=== PATIENT | male | born 1945 | race Caucasian/White ===

== ENCOUNTER 2019-09-20 16:17 | Emergency (ER) | payer MEDICARE, SELFPAY ==
--- NOTE | ~2019-09-20 | XR_ITS ---
XR chest 2V DATE: 09/20/2019 16:55 INDICATION: Cough for 3 days. Diminished breath sounds on the right. TECHNIQUE: PA and lateral views COMPARISON: None FINDINGS: Bilateral hyperinflation. No pulmonary infiltrate or consolidation, pleural effusion or pul monary vascular congestion or pneumothorax. Mild bilateral apical capping. No hilar or mediastinal enlargement. Degenerative spurring of the thoracic spine. Osteopenia. IMPRESSION: Bilateral hyperinflation; no active cardiopulmonary disease Reviewed, dictated and finalized at location B. 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
--- NOTE | 2019-09-20 16:20 | ED.URI ---
HPI - URI/Sore Throat General Chief Complaint: Upper Respiratory Infection Stated Complaint: body aches/cough/rasmussen/chills Time Seen by Provider: 09/20/19 16:43 Source: patient and RN notes reviewed Mode of arrival: ambulatory Limitations: no limitations History of Present Illness HPI Narrative: 73-year-old male with history of COPD presents with 2-day history of cough, chest congestion, rhinorrhea, chills, body aches. Reports he did not take his temperature. MD elicited complaint: cough Related Data Home Medications Medication Instructions Recorded Confirmed albuterol sulfate 90 mcg/actuation 2 puff INHALATION Q4-6H PRN gm 07/05/19 aerosol inhaler amlodipine 10 mg tablet 10 mg PO DAILY 07/05/19 aspirin 81 mg tablet,delayed 81 mg PO DAILY 07/05/19 release atorvastatin 40 mg tablet 40 mg PO DAILY 07/05/19 cholecalciferol (vitamin D3) 25 1,000 unit PO DAILY 07/05/19 mcg (1,000 unit) capsule clopidogrel 75 mg tablet 75 mg PO DAILY 07/05/19 fluticasone 500 mcg-salmeterol 50 1 inhalation INHALATION Q12H 07/05/19 mcg/dose blistr powdr for inhalation ipratropium 0.5 mg-albuterol 3 mg 3 ml INHALATION QID PRN 07/05/19 (2.5 mg base)/3 mL nebulization soln magnesium oxide 400 mg PO DAILY 07/05/19 metoprolol succinate 100 mg 100 mg PO DAILY 07/05/19 tablet,extended release 24 hr pantoprazole 40 mg granules 40 mg PO DAILY 09/07/19 delayed-release for susp in packet Allergies Allergy/AdvReac Type Severity Reaction Status Date / Time No Known Allergies Allergy Verified 01/04/19 07:52 Review of Systems Review of Systems: Narrative: CONSTITUTIONAL: Reports malaise, chills, sweats. Denies fever. EYES: Denies visual changes, redness, or discharge. ENT: Reports rhinorrhea, congestion. Denies sinus pain, otalgia and sore throat. CARDIOVASCULAR: Denies chest pain, palpitations, or edema. RESPIRATORY: Reports cough, chest congestion, wheezing. Denies dyspnea. GASTROINTESTINAL: Denies abdominal pain, nausea, vomiting, diarrhea SKIN: Denies rash or itching. MUSCULOSKELETAL: Reports myalgia. NEUROLOGIC: Denies headache. All systems reviewed & are unremarkable except as noted in HPI and below PMFSH Social History Social History Years smoked: 50 Smoking status: Current every day smoker Tobacco type: cigarettes Second hand tobacco smoke exposure: No Smoking end date: 08/17/14 Alcohol intake: never Drinks per week: 1 Substance use: never Substance use type: does not use Gender identity (if verbalized by the patient): Male Comments At time of signature, agree with nursing past medical, surgical, social and family history. There is no relevant family history pertinent to the presenting complaint Exam Narrative: Exam Narrative: GENERAL: Well-appearing, well-nourished, and in no acute distress. HEAD: Normocephalic, atraumatic. EYES: PERRLA, conjunctivae clear, and EOMI. ENT: Nares clear, turbinates erythematous, clear discharge. Mucous membranes moist. TM pearly acevedo with dull light reflex bilaterally; no tragal tenderness. Oropharynx not erythematous without lesions. Tonsils not enlarged and without exudate, no drooling, no hoarseness, no trismus. NECK: Supple. No lymphadenopathy CHEST: Clear to auscultation, breath sounds diminished in the right lower lobe. No wheezing, rhonchi, rales, or stridor. No respiratory distress, speaks in full sentences. HEART: Regular rate and rhythm. No murmur heard. Normal peripheral pulses. SKIN: Warm, dry, no rash. NEURO: Alert and oriented x3. PSYCH: Normal mood and affect Course Course Emergency Course: Patient is aware of diagnosis, understands and agrees to treatment plan. Anticipatory guidance given. Patient agrees to follow-up as directed and is aware of reasons to seek care at the emergency department. Portions of this record may have been created with voice recognition software Vital Signs Vi
[2019-09-20 16:22] VITALS: BP 130/58; PULSE 88; RESP 32; TEMP 37.1; O2SAT 95
== END 2019-09-20 17:17 | disposition home or self-care (01) ==
PROVIDERS: Emergency Provider Nurse Practitioner; PCP Family Medicine
DX: B34.9 Viral infection, unspecified (principal); J44.9 Chronic obstructive pulmonary disease, unspecified; F17.210 Nicotine dependence, cigarettes, uncomplicated; E78.00 Pure hypercholesterolemia, unspecified; I10 Essential (primary) hypertension; E03.9 Hypothyroidism, unspecified
CPT/HCPCS: 71046; 87804; 99213; G0463

== ENCOUNTER → 2019-10-12 10:28 | Outpatient (REF) | payer MEDICARE, SELFPAY | LOC: ANHLAB 10:28 | PROVIDERS: PCP Family Medicine; Visit Provider Nurse Practitioner Family | DX: C44.01 Basal cell carcinoma of skin of lip (principal) | CPT/HCPCS: 88305; 88331 ==

== ENCOUNTER 2020-03-20 10:39 | Outpatient (CLI) | payer MEDICARE, SELFPAY ==
--- NOTE | ~2020-03-20 | CT_ITS ---
EXAMINATION: CT lung screening DATE: 03/20/2020 11:14 INDICATION: Personal history of tobacco dependence, current smoker with 50 pack year history TECHNIQUE: Computed tomography (CT) of the chest was performed without intravenous contrast. The dose -length product (DLP) was 135.27 mGy-cm. 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 COMPARISON: 12/31/2018 FINDINGS: There is mild emphysema. A previously described 5 mm nodule in the left upper lobe now flori ures 1 mm. A 3 mm nodule previously described in the right lower lobe is no longer identified. There is a stable 4 mm groundglass nodule of the right lower lobe. No new pulmonary nodules are identified. The lungs are free of focal airspace opacities. There is no pleural effusion or pneumothorax. No pat hologically enlarged thoracic lymph nodes are identified. The heart size is normal. Coronary artery a therosclerosis is noted. There is mild thoracic spondylosis. IMPRESSION: 1. Lung-RADS category 2: Benign appearance or behavior. Continue annual screening with noncontrast lo w-dose chest CT in 12 months. Reviewed, dictated and finalized at location A. IMPRESSION: 1. Lung-RADS category 2: Benign appearance or behavior. Continue annual screeni ng with noncontrast low-dose chest CT in 12 months.
== END 2020-03-20 10:40 | disposition home or self-care (01) ==
PROVIDERS: PCP Family Medicine; Visit Provider Family Medicine
DX: Z12.2 Encounter for screening for malignant neoplasm of respiratory organs (principal); Z87.891 Personal history of nicotine dependence
CPT/HCPCS: G0297

== ENCOUNTER 2020-07-13 08:31 | Emergency (ER) | payer MEDICARE, SELFPAY ==
--- NOTE | ~2020-07-13 | XR_ITS ---
XR chest 2V DATE: 07/13/2020 09:10 INDICATION: Cough. COPD. Stroke symptoms. TECHNIQUE: PA and lateral views COMPARISON: 03/20/2020 CT lung screening FINDINGS: There is bilateral hyperinflation consistent with COPD. No pulmonary infiltrate or consolid ation, pleural effusion or pulmonary vascular congestion or pneumothorax is detected. Normal heart size. Aortic calcification. No hilar or mediastinal enlargement. There is widening of the right acromion clavicular joint diffuse osteopenia. Mild degenerative spurri ng of the thoracic spine. IMPRESSION: COPD Aortic atherosclerosis Reviewed, dictated and finalized at location A. DATA ADMIN IMPRESSION: COPD Aortic atherosclerosis
--- NOTE | ~2020-07-13 | CT_ITS ---
EXAMINATION: CT brain wo con DATE: 07/13/2020 09:06 INDICATION: Left lower extremity numbness TECHNIQUE: Computed tomography (CT) of the head was performed without intravenous contrast. The mA wa s adjusted according to patient size. Iterative reconstruction technique was employed. Exam dose: 60 5.33 mGy-cm total exam DLP. COMPARISON: 03/26/2015 CT brain FINDINGS: Bilateral vertebral artery, basilar artery and bilateral carotid siphon internal carotid ar cris calcifications. There is patchy bilateral diminished attenuation of the cerebral white matter, likely due to chronic small vessel ischemic changes. No intracranial mass lesion or hemorrhage, midline shift or mass effect. No subdural or epidural isabell [place]. There is moderate cerebral and mild cerebellar volume loss. Included paranasal sinuses and mastoid air cells are normally developed and aerated. No fracture or bone destruction of the cranial vault. IMPRESSION: Cerebral atherosclerosis and chronic small vessel ischemic changes of the cerebral white matter No acute intracranial finding or significant change since 03/17/2015 Reviewed, dictated and finalized at Location A. Reviewed, dictated and finalized at location A. 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
--- NOTE | 2020-07-13 08:55 | ECG_ITS ---
Measurements Intervals [place] Rate: 64 P: 60 [place]: 138 QRS: 66 QRSD: 79 T: 74 QT: 382 QTc: 396 Interpretive Statements SINUS RHYTHM WITH SINUS ARRHYTHMIA BASELINE ARTIFACT- AVL, AVF, V3 NORMAL ECG Electronically Signed On 07-13-2020 14:25:48 [employer]TING by Tristen Lance D.O.
[2020-07-13 08:56] VITALS: BP 138/66; PULSE 78; RESP 20; TEMP 36.8; O2SAT 98
[2020-07-13 09:44] VITALS: BP 132/56; PULSE 67; RESP 20; O2SAT 96
[2020-07-13 09:58] LABS: Basophils Percent Auto 0.2 % (0.2-1.2); Eosinophils Absolute Auto 0.1 K/mm3 (0-0.3); Eosinophils Percent Auto 1.8 % (0-4.4); Hematocrit 42.7 % (42.0-52.0); Hemoglobin 14.1 g/dL (14.0-18.0); Immature Granulocyte Absolute 0.02 K/mm3 (0.00-0.031); Immature Granulocyte Percent A 0.4 % (0-0.5); Lymphocytes Absolute Auto 1.14 K/mm3 (0.9-3.2); Lymphocytes Percent Auto 20.5 % (18.3-44.2); Mean Corpuscular Hemoglobin 31.3 pg (26-34); Mean Corpuscular Volume 94.7 fl (80-100); Mean Platelet Volume 9.1 fl (7.4-10.4); Monocytes Absolute Auto 0.7 K/mm3 (0.1-0.6); Monocytes Percent Auto 12.2 % (2.6-8.5); Neutrophils Absolute Auto 3.6 K/mm3 (1.3-6.7); Neutrophils Percent Auto 64.9 % (45.5-73.1); Platelet Count Result 194 k/mm3 (150-375); Red Blood Count 4.51 M/mm3 (4.6-6.20); Red Cell Distribution Width 13.2 % (11.5-14.5); White Blood Count 5.6 K/mm3 (4.5-10.0)
[2020-07-13 10:08] LABS: INR 0.9; Prothrombin Time 13.1 Seconds (11.1-14.7)
[2020-07-13 10:09] LABS: Partial Thromboplastin Time 28.5 SECONDS (22.3-36.8)
[2020-07-13 10:10] LABS: Anion Gap 8 mmol/L (8-16); Blood Urea Nitrogen 29 mg/dL (9-20); Calcium 10.9 mg/dL (8.4-10.2); Carbon Dioxide 28 mmol/L (22-30); Chloride 104 mmol/L (98-107); Estimated Glomerular Filt Rate 42; Glucose 93 mg/dL (75-110); Potassium 4.6 mmol/L (3.4-5.0); Sodium 140 mmol/L (137-145)
--- NOTE | 2020-07-13 10:48 | ED.GENADULT ---
HPI - General Adult General Chief complaint: Extremity Injury, Lower Stated complaint: Left leg pain and numbness Time Seen by Provider: 07/13/20 08:43 History of Present Illness HPI narrative: Patient is a 74-year-old male who presents ER with left lower extremity numbness and fall occurring this morning. Reports he woke up from sleep and he was numb below his knee. Reports this caused him to have difficulty walking and fell. He had no numbness or tingling or weakness to any other part of his body. He does not think he was having foot drop. Patient reports he has been having some left hip pain chronically and thought that that had made his leg go to sleep. Reports he has history of carotid artery stenosis bilaterally and has had TIAs. He does take Plavix and aspirin. No chest pain or chest pressure. No dysarthria or facial droop. Symptoms have resolved. Related Data Home Medications Medication Instructions Recorded Confirmed albuterol sulfate 90 mcg/actuation 2 puff INHALATION Q4-6H PRN gm 07/05/19 aerosol inhaler aspirin 81 mg tablet,delayed 81 mg PO DAILY 07/05/19 release cholecalciferol (vitamin D3) 25 1,000 unit PO DAILY 07/05/19 mcg (1,000 unit) capsule fluticasone 500 mcg-salmeterol 50 1 inhalation INHALATION Q12H 07/05/19 mcg/dose blistr powdr for inhalation ipratropium 0.5 mg-albuterol 3 mg 3 ml INHALATION QID PRN 07/05/19 (2.5 mg base)/3 mL nebulization soln magnesium oxide 400 mg PO DAILY 07/05/19 Allergies Allergy/AdvReac Type Severity Reaction Status Date / Time No Known Allergies Allergy Verified 02/22/20 10:12 Review of Systems Review of Systems: All systems reviewed & are unremarkable except as noted in HPI and below Constitutional: Constitutional: Denies chills, Denies fever(s) and Denies weakness ENT: Denies nasal congestion and Denies sore throat Cardiovascular: Cardiovascular: Denies chest pain, Denies rapid heart rate and Denies radiating jaw, neck or arm pain Respiratory: Respiratory: Denies cough, Denies dyspnea and Denies wheezing Neurologic: Denies syncope, Denies focal weakness and Reports numbness PMFSH Past Medical History Medical History (Updated 07/13/20 @ 11:49 by Agusto Rendon MD) Acquired hypothyroidism Benign prostatic hyperplasia with lower urinary tract symptoms Carotid artery disease Cataracts, bilateral COPD (chronic obstructive pulmonary disease) Essential (primary) hypertension GERD (gastroesophageal reflux disease) History of prostate cancer History of TIAs HLD (hyperlipidemia) Tennis elbow Surgical History Surgical History H/O laminectomy Status post lumbar laminectomy Status post recent transurethral resection of prostate Status post rotator cuff repair Family History Family History Mother Hypertension Cerebrovascular accident Carcinoma of colon Family history of malignant neoplasm of breast in first degree relative Sibling Family history of pancreatic cancer Father Family history of coronary artery disease Other Family history of malignant neoplasm Social History Social History Years smoked: 50 Smoking status: Current every day smoker Tobacco type: cigarettes Second hand tobacco smoke exposure: No Smoking end date: 08/17/14 Alcohol intake: never Substance use: never Substance use type: does not use Gender identity (if verbalized by the patient): Male Exam Narrative: Exam Narrative: GENERAL: Well-appearing, well-nourished, and in no acute distress. HEAD: Normocephalic, atraumatic. EYES: PERRL and EOMI. ENT: Mucous membranes moist. CHEST: Clear to auscultation. No respiratory distress. HEART: Regular rate and rhythm. Normal peripheral pulses. ABDOMEN: Soft, nontender, nondistended. EXTREMITIES: Normal range of motion. No edema.
[2020-07-13 10:51] VITALS: BP 114/56; PULSE 69; RESP 20; O2SAT 95
[2020-07-13 11:16] VITALS: BP 67/54; PULSE 66; RESP 22
[2020-07-13 11:41] VITALS: BP 135/62; PULSE 73; RESP 20; O2SAT 95
[2020-07-13 11:55] VITALS: BP 135/62; PULSE 68; RESP 20; O2SAT 98
== END 2020-07-13 12:06 | disposition home or self-care (01) ==
PROVIDERS: Emergency Provider Emergency Medicine; PCP Family Medicine
DX: G45.9 Transient cerebral ischemic attack, unspecified (principal); M25.552 Pain in left hip; I70.0 Atherosclerosis of aorta; E03.9 Hypothyroidism, unspecified; N40.1 Benign prostatic hyperplasia with lower urinary tract symptoms; I25.10 Atherosclerotic heart disease of native coronary artery without angina pectoris; J44.9 Chronic obstructive pulmonary disease, unspecified; I10 Essential (primary) hypertension; K21.9 Gastro-esophageal reflux disease without esophagitis; Z85.46 Personal history of malignant neoplasm of prostate; E78.5 Hyperlipidemia, unspecified; Z79.82 Long term (current) use of aspirin; Z79.02 Long term (current) use of antithrombotics/antiplatelets; Z90.79 Acquired absence of other genital organ(s)
CPT/HCPCS: 36415; 70450; 71046; 80048; 85025; 85610; 85730; 93005; 99284

== ENCOUNTER 2020-07-23 15:03 | Outpatient (CLI) | payer MEDICARE, SELFPAY ==
--- NOTE | ~2020-07-23 | XR_ITS ---
XR lumbar spine 2-3V DATE: 07/23/2020 15:30 INDICATION: Shooting pain from back to left leg for one month TECHNIQUE: AP, lateral, coned lateral lumbosacral views COMPARISON: None FINDINGS: Diffuse osteopenia. There is minimal dextroscoliosis. Normal alignment of the lumbar spine. No fracture or bone destruction is evident. The included lower thoracic and lumbar pedicles are intact. There is mild degenerative disc disease at L1-2 through L4-5. There is moderately severe degenerative disc disease at L5-S1. The sacroiliac joints are intact. Extensive calcification of the abdominal aorta and iliac arteries. IMPRESSION: Osteopenia Multilevel degenerative disc disease, prominent at L5-S1 Reviewed, dictated and finalized at location A. CUTTER
--- NOTE | ~2020-07-23 | XR_ITS ---
XR hip LT 2V w AP pelvis DATE: 07/23/2020 15:30 INDICATION: Left hip pain for one month TECHNIQUE: AP pelvis. AP, lateral, crosstable lateral views of left hip COMPARISON: 01/18/2018 left hip FINDINGS: Degenerative disc disease at L3-4, L4-5 and particularly L5-S1. No pelvic fracture or bone destruction. The pubic symphysis and sacroiliac joints are intact. There a re prominent bilateral iliac and femoral arterial calcifications. There is subtle mild left hip chondrocalcinosis. No fracture, dislocation, avascular necrosis or bone destruction of the left hip is detected. Left hip joint space appears relatively preserved. IMPRESSION: Subtle mild left hip chondrocalcinosis. Degenerative disc disease of the lumbar and lumbosacral spine Reviewed, dictated and finalized at location A. APPLIANCE TECH
== END 2020-07-23 15:04 | disposition home or self-care (01) ==
PROVIDERS: PCP Family Medicine; Visit Provider Physician Assistant
DX: M11.252 Other chondrocalcinosis, left hip (principal); M47.817 Spondylosis without myelopathy or radiculopathy, lumbosacral region; I77.811 Abdominal aortic ectasia; I70.0 Atherosclerosis of aorta; I70.8 Atherosclerosis of other arteries
CPT/HCPCS: 72100; 73502

== ENCOUNTER → 2020-08-24 11:48 | Outpatient (CLI) | payer MEDICARE, SELFPAY ==
--- NOTE | ~2020-08-24 | MR_ITS ---
EXAMINATION: MR lumbar spine wo con DATE: 08/24/2020 12:33 INDICATION: Lumbar radiculopathy. TECHNIQUE: Magnetic resonance imaging (MRI) of the lumbar spine was performed without intravenous con trast. Sequences included sagittal T2-weighted FSE, sagittal T2-weighted FS FSE, sagittal T1-weighted FSE, and axial T2-weighted FSE. COMPARISON: Lumbar spine radiograph 07/23/2020 FINDINGS: There is 8 degrees dextrocurvature of lumbar spine. There is 4 mm retrolisthesis of L5 on S 1. There is severely decreased disc height at L5-S1 with endplate remodeling. The distal spinal cord signal intensity is normal. The conus medullaris is at L1. The following disc levels are specifically discussed: L1-L2: The disc does not extend beyond the endplate margin. There is mild bilateral facet joint osteo arthritis. There is no neural foraminal stenosis. There is no central canal stenosis. L2-L3: The disc is mildly bulging. There is severe bilateral facet joint osteoarthritis. There is mil d bilateral neural foraminal stenosis. There is no central canal stenosis. L3-L4: The disc is mildly bulging. There is moderate right and severe left facet joint osteoarthritis . There is mild bilateral neural foraminal stenosis. There is no central canal stenosis. L4-L5: The disc is bulging. There is mild bilateral facet joint osteoarthritis. There is mild right a nd moderate left neural foraminal stenosis. There is mild central canal stenosis. L5-S1: The disc is bulging and has an annular fissure. The disc abuts the bilateral S1 nerve roots. T here is mild bilateral facet joint osteoarthritis. There is moderate bilateral neural foraminal steno sis. There is mild central canal stenosis. IMPRESSION: 1. Severe lower lumbar spondylosis. Reviewed, dictated and finalized at location A. PLANT OPERATOR
== END ==
PROVIDERS: PCP Family Medicine; Visit Provider Family Medicine
DX: M47.27 Other spondylosis with radiculopathy, lumbosacral region (principal); M48.07 Spinal stenosis, lumbosacral region; M25.552 Pain in left hip; M25.551 Pain in right hip
CPT/HCPCS: 72148

== ENCOUNTER 2020-10-06 11:40 | Outpatient (CLI) | payer MEDICARE, SELFPAY ==
--- NOTE | ~2020-10-06 | XR_ITS ---
EXAMINATION: XR abdomen/kub 1V EXAM DATE: 10/06/2020 11:57 INDICATION: Cancer of bladder neck. TECHNIQUE: Frontal projection(s) of the abdomen for interpretation. Comparison is made to prior exami nation from 06/14/2006. FINDINGS: There is moderate amount of colonic stool and gas. No small bowel dilation, nonobstructiv e bowel gas pattern. Calcifications in the pelvis are believed to be phleboliths. There is no orga nomegaly suspected. There are bony degenerative changes. Lung bases are unremarkable. IMPRESSION: Unremarkable abdomen x-ray exam. Reviewed, dictated and finalized at location A. ING CARRIER
== END 2020-10-06 11:41 | disposition home or self-care (01) ==
LOC: ANHIMG 11:44
PROVIDERS: PCP Family Medicine; Visit Provider Urology
DX: C67.5 Malignant neoplasm of bladder neck (principal)
CPT/HCPCS: 74018

== ENCOUNTER 2020-12-05 11:22 | Outpatient (CLI) | payer MEDICARE, SELFPAY ==
[2020-12-05 12:05] LABS: Basophils Absolute Auto 0.1 K/mm3 (0.0-0.1); Basophils Percent Auto 0.7 % (0.2-1.2); Eosinophils Absolute Auto 0.4 K/mm3 (0-0.3); Eosinophils Percent Auto 4.3 % (0-4.4); Hematocrit 40.9 % (42.0-52.0); Hemoglobin 13.1 g/dL (14.0-18.0); Immature Granulocyte Absolute 0.03 K/mm3 (0.00-0.031); Immature Granulocyte Percent A 0.3 % (0-0.5); Lymphocytes Absolute Auto 2.72 K/mm3 (0.9-3.2); Lymphocytes Percent Auto 30.1 % (18.3-44.2); Mean Corpuscular Hemoglobin 30.9 pg (26-34); Mean Corpuscular Volume 96.5 fl (80-100); Mean Platelet Volume 9.1 fl (7.4-10.4); Neutrophils Absolute Auto 4.9 K/mm3 (1.3-6.7); Neutrophils Percent Auto 53.6 % (45.5-73.1); Platelet Count Result 267 k/mm3 (150-375); Red Blood Count 4.24 M/mm3 (4.6-6.20); White Blood Count 9.1 K/mm3 (4.5-10.0)
[2020-12-05 12:15] LABS: Anion Gap 5 mmol/L (8-16); Blood Urea Nitrogen 23 mg/dL (9-20); Calcium 11.1 mg/dL (8.4-10.2); Carbon Dioxide 29 mmol/L (22-30); Chloride 109 mmol/L (98-107); Estimated Glomerular Filt Rate 59; Glucose 100 mg/dL (75-110); INR 0.9; Potassium 4.4 mmol/L (3.4-5.0); Prothrombin Time 12.8 Seconds (11.1-14.7); Sodium 143 mmol/L (137-145)
[2020-12-05 12:16] LABS: Partial Thromboplastin Time 27.4 SECONDS (22.3-36.8)
== END 2020-12-05 11:23 | disposition home or self-care (01) ==
LOC: ANHSURGERY 11:24
PROVIDERS: PCP Family Medicine; Visit Provider Urology
DX: C67.9 Malignant neoplasm of bladder, unspecified (principal)
CPT/HCPCS: 36415; 80048; 85025; 85610; 85730

== ENCOUNTER → 2020-12-07 00:46 | Outpatient (CLI) | payer MEDICARE, SELFPAY ==
[2020-12-07 21:02] LABS: SARS-CoV-2 RNA PCR Negative
== END ==
PROVIDERS: PCP Family Medicine; Visit Provider Urology
DX: Z01.812 Encounter for preprocedural laboratory examination (principal); Z20.822 Contact with and (suspected) exposure to COVID-19
CPT/HCPCS: C9803; U0003; U0005

== ENCOUNTER 2020-12-11 01:43 | Day surgery (SDC) | payer MEDICARE, SELFPAY ==
[2020-11-30 09:23] VITALS: BMI 23.6
[2020-12-11] VITALS (9 sets, daily range): BP systolic 129–173; BP diastolic 56–87; PULSE 54–88; RESP 14–20; TEMP 36.2–36.9; O2SAT 95–99; BMI 23.1
[2020-12-11] MEDS: LACTATED RINGERS 1,000 ML 30 ML IV CONT ×3 (06:44→11:18)
--- NOTE | 2020-12-11 07:04 | WPDANESEPPF ---
Anes - Initial Pre Proc Eval Procedure: Operation Date: 12/11/20 07:30 Proposed Procedures p Trans Urethral Resection Bladder Tumor - Charles Lincoln MD Date/Time: 12/11/20 07:04 Surgeon: Charles Lincoln MD Pre Op Diagnosis: bladder CA Patient Data Age: 75 Gender: M Height: 1.8 m Weight: 75.1 kg Last Vital Signs Temp 36.2 C L 12/11/20 06:29 Pulse 63 12/11/20 06:29 Resp 18 12/11/20 06:29 BP 152/57 H 12/11/20 06:29 Pulse Ox 98 12/11/20 06:29 Allergies Allergy/AdvReac Type Severity Reaction Status Date / Time No Known Allergies Allergy Verified 12/11/20 06:13 Home Medications Medication Instructions Recorded Confirmed Type albuterol sulfate 90 mcg/actuation 2 puff INHALATION Q4-6H PRN gm 07/05/19 12/11/20 History aerosol inhaler aspirin 81 mg tablet,delayed 81 mg PO QPM 07/05/19 12/11/20 History release cholecalciferol (vitamin D3) 25 1,000 unit PO DAILY 07/05/19 12/11/20 History mcg (1,000 unit) capsule ipratropium 0.5 mg-albuterol 3 mg 3 ml INHALATION QID PRN 07/05/19 12/11/20 History (2.5 mg base)/3 mL nebulization soln magnesium oxide 400 mg PO DAILY 07/05/19 12/11/20 History clopidogrel 75 mg tablet 75 mg PO DAILY #90 tablet 03/08/20 12/11/20 Rx lorazepam 0.5 mg tablet 0.5 - 1 mg PO .COMPLEX PRN #4 08/08/20 12/11/20 Rx tablet pantoprazole 20 mg tablet,delayed 20 mg PO QAM #90 tablet 09/24/20 12/11/20 Rx release amlodipine 10 mg PO QAM 11/30/20 12/11/20 History atorvastatin 80 mg PO QAM 11/30/20 12/11/20 History gabapentin 300 mg PO TID 11/30/20 12/11/20 History levothyroxine 112 mcg PO QPM 11/30/20 12/11/20 History lisinopril 10 mg PO QPM 11/30/20 12/11/20 History metoprolol succinate 100 mg PO QPM 11/30/20 12/11/20 History fluticasone fur. 100 mcg-umeclid 1 inh INHALATION Q24H #90 ea 12/04/20 12/04/20 Rx 62.5 mcg-vilant 25 mcg inhalat.powder Patient hx anesthesia problems: none Family hx anesthesia problems: none PMFSH Past Medical History Medical History (Updated 09/03/20 @ 13:15 by Gavin Lynch MD) Acquired hypothyroidism Benign prostatic hyperplasia with lower urinary tract symptoms Carotid artery disease Cataracts, bilateral COPD (chronic obstructive pulmonary disease) Essential (primary) hypertension GERD (gastroesophageal reflux disease) History of prostate cancer History of TIAs HLD (hyperlipidemia) Lumbar spondylosis Tennis elbow Surgical History Surgical History H/O laminectomy Status post lumbar laminectomy Status post recent transurethral resection of prostate Status post rotator cuff repair Family History Family History Mother Hypertension Cerebrovascular accident Carcinoma of colon Family history of malignant neoplasm of breast in first degree relative Sibling Family history of pancreatic cancer Father Family history of coronary artery disease Other Family history of malignant neoplasm Social History Social History Smoking packs per day: 1 Smoking cigarettes per day: 20.0 Years smoked: 55 Smoking pack-years: 55.00 Smoking status: Former smoker Tobacco type: cigarettes Second hand tobacco smoke exposure: No Smoking end date: 02/14/19 Alcohol intake: current Substance use: never Substance use type: does not use Living arrangements: with family Additional living arrangements comments: [facility] Gender identity (if verbalized by the patient): Male Spiritual care concerns: No Anes - Eval Final PreProcedure Day of Procedure 12/11/20 07:04 Patient weight: normal Heart: regular rate and rhythm Lungs: clear to auscultation and normal air movement Airway: Mallampati scale class II Neurological: alert and oriented Last oral intake: >/= 8 hours ASA classification: III Emergent: no Anesthetic
--- NOTE | 2020-12-11 07:08 | WPDHPUPDATE1 ---
History and Physical Update Update Date/Time: 12/11/20 07:08 History and Physical has been reviewed, including an updated exam of the patient. There are NO changes in the patient's condition. Risks, benefits, and alternatives have been discussed and questions answered. Patient agrees to proceed with procedure. Proceed with TURBT
[2020-12-11] MEDS: ceFAZolin 2 GM/D5W 50 ML 2 GM/50 ML BAG IVPB (07:25)
[2020-12-11] MEDS: LIDOCAINE HCL 2% GEL UROJET 10 ML PKG MUCOUS MEM (07:51)
--- NOTE | 2020-12-11 08:04 | P.OP_ITS ---
Procedure Note - Detailed Date of procedure: 12/11/20 Pre-op diagnosis: bladder CA Post-op diagnosis: same Procedure performed: Transurethral section of bladder tumor large area in total greater than 5 cm Description of procedure: Patient is taken the operative suite and correctly identified. Once anesthesia was obtained he was placed in dorsal lithotomy position and prepped and draped usual sterile fashion. Twenty-four [place] Citizen resectoscope was inserted into the bladder. The bladder was inspected in its entirety. Patient had multiple areas of tumors including the floor just lateral to the right ureteral orifice the posterior wall. He had some lesions along the right posterior wall dome and left lateral wall. We resected the majority these and used the ball electrode for some irregularity of the mucosa along the left lateral wall. Specimens were sent for analysis. Hemostasis was good at termination procedure. 2% viscous lidocaine was inserted urethra and patient taken recovery stable condition. He is to call for path results in a week's time. Anesthesia: GLMA Surgeon: Charles Lincoln MD Estimated blood loss (mL): 0 Drains: No Packing: No Pathology: yes Complications: No immediate complications Condition: stable Disposition: PACU
[2020-12-11] MEDS: oxyCODONE HCL (*CRX) 2.5 MG TAB IR PO (12:35)
[2020-12-11] MEDS: fentaNYL CITRATE INJ (*CRX) 100 MCG/2 ML VIAL 25 MCG IV PUSH ×2 (12:47→12:50)
--- NOTE | 2020-12-11 16:31 | SUR.PHASEII ---
1245 pt very uncomfortable with a lot of pain in the periumbilicus area, pt bladder scanned and had at least 1000ml, each time scanned. 1250 dr copeland notified and given update. order to place a 16french foly cath given, pt to see him in office ojn monday december 14, 2020 to have foly cath removed. 1325 post cath insertion pt is doing better with pain and feels some relief from periumbilicus pain.
== END 2020-12-11 13:55 | disposition home or self-care (01) ==
PROVIDERS: PCP Family Medicine; Visit Provider Urology
PROC: 0TBB8ZZ Excision of Bladder, Via Natural or Artificial Opening Endoscopic (ICD-10-PCS; CPT 52240; principal; 2020-12-11 07:30)
DX: C67.8 Malignant neoplasm of overlapping sites of bladder (principal); E03.9 Hypothyroidism, unspecified; J44.9 Chronic obstructive pulmonary disease, unspecified; I10 Essential (primary) hypertension; K21.9 Gastro-esophageal reflux disease without esophagitis; E78.5 Hyperlipidemia, unspecified; Z85.46 Personal history of malignant neoplasm of prostate; Z86.73 Personal history of transient ischemic attack (TIA), and cerebral infarction without residual deficits; Z87.891 Personal history of nicotine dependence
CPT/HCPCS: 52240; 88305; A9270; C9803; J0690; J2250; J2405; J2704; J3010; J7120; U0003; U0005

== ENCOUNTER 2020-12-16 10:47 | Emergency (ER) | payer MEDICARE, SELFPAY ==
[2020-12-16] VITALS (7 sets, daily range): BP systolic 133–185; BP diastolic 55–74; PULSE 62–90; RESP 14–18; TEMP 35.9; O2SAT 96–99
--- NOTE | ~2020-12-16 | XR_ITS ---
XR tibia fibula LT 2V DATE: 12/16/2020 12:59 INDICATION: Left leg pain TECHNIQUE: AP and lateral views COMPARISON: None FINDINGS: No fracture or dislocation, periosteal reaction or bone destruction of the tibia or fibula. [place] at the knee and ankle joints. IMPRESSION: No significant abnormality of left tibia or fibula Reviewed, dictated and finalized at location A.
--- NOTE | ~2020-12-16 | CT_ITS ---
EXAMINATION: CTA abd aorta runoff DATE: 12/16/2020 16:40 INDICATION: Peripheral vascular disease to the bilateral lower limbs with indiscernible pulses at the left foot. TECHNIQUE: Computed tomographic angiography (CTA) of the abdominal, pelvis, and both lower extremitie s was performed with 150 mL Omnipaque 350 intravenous contrast. Automated exposure control and iterat minoo reconstruction technique were employed. The dose-length product was 1045 mGy-cm. COMPARISON: CT abdomen and pelvis dated 03/17/2015 FINDINGS: ABDOMINAL AORTA AND ITS BRANCHES: Fusiform ectasia of the infrarenal aorta which measures up to 3.2 cm in maximal diameter. There is ex tensive atherosclerotic plaque throughout the abdominal aorta with a maximal 40% stenosis in the infr arenal abdominal aorta relative to the normal luminal diameter. There is 50% stenosis at the origin o f the celiac axis. 70% stenosis at the proximal superior mesenteric artery. There is a likely at leas t 50% stenosis at the origin of the inferior mesenteric artery however quantitative assessment is lopez ited by the small size of the vessel. Similarly there appears to be hemodynamically significant steno sis approximately 50% at the proximal left renal artery and 70% at the proximal right renal artery al though again quantitative assessment is limited by the small size of the vessels. PELVIC VASCULATURE: Atherosclerotic plaque throughout the bilateral common, internal and external iliac arteries. There a ppears be either occlusion or near occlusion stenosis throughout the left common femoral artery. Graeme tional >70% stenosis along the left external iliac artery. Approximately 70% stenosis on the left int ernal iliac artery. 50% stenosis along the right common iliac artery. 50-70% stenosis on the right ex ternal iliac artery. 50% stenosis of the right internal iliac artery. RIGHT LOWER EXTREMITY: 50% stenosis at the right common femoral artery. 70% stenosis at the origin of the superficial femora l artery with additional scattered plaque with up to 50% stenosis in the proximal and distal superfic ial femoral artery. 70% stenosis at the proximal popliteal artery with additional up to 50% stenosis on the more distal popliteal artery. Scattered atherosclerotic plaque with up to 50% stenosis of the tibioperoneal trunk. The anterior tibial, posterior tibial and peroneal arteries appear patent with t hree-vessel runoff to the ankle. LEFT LOWER EXTREMITY: Multifocal 50-70% stenosis along the left common femoral and proximal superficial femoral arteries. A dditional 50% stenosis in the distal left femoral artery. Moderate 50-70% stenosis at the proximal le ft popliteal artery. >70% stenosis in the left popliteal artery approximately 5 cm above level of the knee joint line. 70% stenosis in the distal popliteal artery near the bifurcation. Suggestion modera te grade stenosis at the origin of the anterior tibial artery and moderate to high-grade stenosis at the tibioperoneal trunk which are too small for quantitative assessment. There is runoff to the ankle and the left posterior tibial artery. In the anterior tibial and peroneal arteries to within 6 cm of the tibiotalar joint line. ADDITIONAL FINDINGS: Mild emphysema at the lung bases. Heart size is normal. No pericardial or pleural effusion. Liver, ga llbladder, spleen, pancreas and bilateral adrenal glands are normal. Mild bilateral renal cortical at rophy. There are few scattered colonic diverticula without adjacent inflammatory change to suggest di verticulitis. Small bowel and appendix are normal. Small bilateral fat-containing inguinal hernias. T here is asymmetric mild wall thickening with a smooth mucosal contour along the right posterior aspec t of the bladder. Small amount of gas within the bladder and would correlate for recent instrumentati on or [place] catheterization. Fluid attenuation defect in the central aspe
--- NOTE | ~2020-12-16 | US_ITS ---
EXAMINATION: US art doppler w press LE BI DATE: 12/16/2020 14:09 INDICATION: Unable to detect pulses in the lower limbs. TECHNIQUE: Segmental pressures and plethysmographic and Doppler waveforms of the brachial and lower e xtremity arteries were obtained. COMPARISON: None. FINDINGS: Right and left brachial artery pressures of 141 mm Hg and 150 mm Hg, respectively, are concordant (no rmal difference <= 30 mmHg). The right ankle-brachial index (MIRYAM) is 0.51 (normal >= 0.9-1). The right great toe-brachial index (T BI) is 0.27 (normal >= 0.6-0.8). Arterial waveforms are biphasic with brisk systolic upstrokes throug hout. The left MIRYAM and TBI were unable to be obtained due to absence of discernible pulses with aphasic ant egrade waveform in the left anterior tibial artery, parvus et tardus waveform in the left posterior t ibial artery and no discernible flow on color Doppler in the left dorsalis pedis artery. Arterial wav eforms in the more proximal arteries of the left lower limb beginning at the left common femoral gregoria ry are also biphasic but with broadened systolic peaks and delayed upstrokes. IMPRESSION: 1. Bilateral arterial occlusive disease with moderate to severely decreased right MIRYAM and TBI and no dopplerable pulse at the left ankle were great toe with parvus and tardus waveforms in the arteries o f the more proximal left lower limb beginning at the left common femoral artery suggesting high-grade stenosis on the left iliac arteries. Reviewed, dictated and finalized at location A. IMPRESSION: 1. Bilateral arterial occlusive disease with moderate to severely decreased rig ht MIRYAM and TBI and no dopplerable pulse at the left ankle were great toe with p arvus and tardus waveforms in the arteries of the more proximal left lower limb beginning at the left common femoral artery suggesting high-grade stenosis on the left iliac arteries.
--- NOTE | ~2020-12-16 | XR_ITS ---
XR foot LT min 3V DATE: 12/16/2020 12:59 INDICATION: Pain TECHNIQUE: 4 views COMPARISON: None FINDINGS: Mild plantar and minimal posterior calcaneal enthesopathy. Mild osteoarthritis at the first metatarsophalangeal joint. No fracture or dislocation, periosteal reaction or bone destruction. IMPRESSION: Plantar and slight posterior calcaneal enthesopathy Mild osteoarthritis at first metatarsophalangeal joint Reviewed, dictated and finalized at location A.
--- NOTE | ~2020-12-16 | US_ITS ---
US venous doppler [facility] DATE: 12/16/2020 14:04 INDICATION: Bilateral lower extremity pain TECHNIQUE: Real-time and color flow imaging and Doppler analysis COMPARISON: None FINDINGS: The greater saphenous veins are patent. There is spontaneous and phasic flow and normal aug mentation and color flow signal and normal compression of the deep veins of both lower extremities. IMPRESSION: Negative examination; no evidence of deep venous thrombosis of the lower extremities Reviewed, dictated and finalized at Location A. Reviewed, dictated and finalized at location A.
--- NOTE | ~2020-12-16 | XR_ITS ---
XR femur LT min 2V DATE: 12/16/2020 12:58 INDICATION: Left hip pain radiating down the lower extremity TECHNIQUE: AP and lateral views of left femur COMPARISON: None FINDINGS: No fracture or dislocation, periosteal reaction or bone destruction of the left femur. Norm al alignment at the left hip and knee joints. Femoral and popliteal artery calcifications. IMPRESSION: No significant abnormality of the femur Reviewed, dictated and finalized at location A.
--- NOTE | 2020-12-16 11:14 | PC.NURSE ---
Pt to ED with complaints of lower back pain radiating down left leg causing increased numbness in left lower leg and foot. Pt reports he has these issues chronically and sees pain management, but the pain and numbness have become worse over the last few days. Pt has no weakness in left leg but states the numbness has caused his to trip and have increased falls. Pt denies any recent injury. Reports some pain left calf. Unable to palpate pulse in either left or right foot. Pt legs and feet pale but warm. Doppler at bedside for pulse check.
--- NOTE | 2020-12-16 12:02 | PC.NURSE ---
3 RNS made attempt to find left pedal pulse with doppler. Bryce Kincaid NP made aware.
--- NOTE | 2020-12-16 12:23 | PC.NURSE ---
APPRAISER LAND at bedside for assessment.
--- NOTE | 2020-12-16 12:38 | ED.GENADULT ---
HPI - General Adult General Chief complaint: Back Pain/Injury Stated complaint: left leg numbness, back pain Time Seen by Provider: 12/16/20 11:34 Source: patient Mode of arrival: ambulatory Limitations: no limitations History of Present Illness HPI narrative: Patient presents for evaluation of left lower extremity pain on and off since . He cannot identify any precipitating cause or injury. He reports numbness in the distal left lower leg and left foot for the last few days. He has no intermittent numbness in the left lower leg over the course the last few months. He states that he was initially evaluated by his primary care doctor was referred to pain management. He has been receiving steroid injections in his low back for spinal stenosis. He states pain is variable in presentation within the left lower leg. He cannot provide me with a descriptive quality or numerical rating of pain. He states he receives tramadol and gabapentin from pain management. He states that his leg gave out on him multiple times this week causing him to fall. He believes this is largely related to the numbness he has experienced in left lower leg and left foot. He denied his head or have loss of consciousness. Of note he has history of bladder cancer. His plavix was recently held for surgery and he has not restarted it yet. He is a former smoker.. No personal or family history of VTE. Related Data Home Medications Medication Instructions Recorded Confirmed albuterol sulfate 90 mcg/actuation 2 puff INHALATION Q4-6H PRN 07/05/19 12/11/20 aerosol inhaler aspirin 81 mg tablet,delayed 81 mg PO QPM 07/05/19 12/11/20 release cholecalciferol (vitamin D3) 25 1,000 unit PO DAILY 07/05/19 12/11/20 mcg (1,000 unit) capsule ipratropium 0.5 mg-albuterol 3 mg 3 ml INHALATION QID PRN 07/05/19 12/11/20 (2.5 mg base)/3 mL nebulization soln magnesium oxide 400 mg PO DAILY 07/05/19 12/11/20 amlodipine 10 mg PO QAM 11/30/20 12/11/20 atorvastatin 80 mg PO QAM 11/30/20 12/11/20 gabapentin 300 mg PO TID 11/30/20 12/11/20 levothyroxine 112 mcg PO QPM 11/30/20 12/11/20 lisinopril 10 mg PO QPM 11/30/20 12/11/20 metoprolol succinate 100 mg PO QPM 11/30/20 12/11/20 Allergies Allergy/AdvReac Type Severity Reaction Status Date / Time No Known Allergies Allergy Verified 12/11/20 06:13 Review of Systems Review of Systems: Narrative: CONSTITUTIONAL: Denies fever, chills, or sweats. EYES: Denies visual changes, redness, or discharge. ENT: Denies rhinorrhea, congestion, sore throat, or otalgia. CARDIOVASCULAR: Denies chest pain, palpitations, or edema. RESPIRATORY: Denies cough or dyspnea. GASTROINTESTINAL: Denies abdominal pain, nausea, vomiting, or diarrhea. GENITOURINARY: Denies dysuria or hematuria. SKIN: Denies rash or itching. MUSCULOSKELETAL: Reports pain in left lower extremity extending from his hip through the left foot NEUROLOGIC: Reports numbness in the distal left lower leg and left foot. Denies headache, dizziness, or weakness. PSYCHIATRIC: Denies anxiety or depression. [facility] Past Medical History Medical History Acquired hypothyroidism Benign prostatic hyperplasia with lower urinary tract symptoms Carotid artery disease Cataracts, bilateral COPD (chronic obstructive pulmonary disease) Essential (primary) hypertension GERD (gastroesophageal reflux disease) History of prostate cancer History of TIAs HLD (hyperlipidemia) Lumbar spondylosis Tennis elbow Surgical History Surgical History H/O laminectomy Status post lumbar laminectomy Status post recent transurethral resection of prostate Status post rotator cuff repair Family History Family History Mother Hypertension Cerebrovascular accident Carcinoma of colon Family history of malignant ne
--- NOTE | 2020-12-16 12:43 | PC.NURSE ---
Pt to xray.
--- NOTE | 2020-12-16 13:52 | PC.NURSE ---
Pt still in radiology at this time.
[2020-12-16] MEDS: HYDROcodone/acetaminophen (*CRX) 5-325 MG TABLET 1 TAB PO ×2 (14:00→18:09)
[2020-12-16 14:12] LABS: Basophils Percent Auto 0.3 % (0.2-1.2); Eosinophils Absolute Auto 0.4 K/mm3 (0-0.3); Eosinophils Percent Auto 4.1 % (0-4.4); Hematocrit 37.2 % (42.0-52.0); Hemoglobin 12.4 g/dL (14.0-18.0); Immature Granulocyte Absolute 0.04 K/mm3 (0.00-0.031); Immature Granulocyte Percent A 0.4 % (0-0.5); Lymphocytes Absolute Auto 1.97 K/mm3 (0.9-3.2); Lymphocytes Percent Auto 21.4 % (18.3-44.2); Mean Corpuscular HGB Conc 33.3 g/dl (32-36); Mean Corpuscular Hemoglobin 31.1 pg (26-34); Mean Corpuscular Volume 93.2 fl (80-100); Mean Platelet Volume 8.7 fl (7.4-10.4); Monocytes Absolute Auto 0.7 K/mm3 (0.1-0.6); Monocytes Percent Auto 7.8 % (2.6-8.5); Neutrophils Absolute Auto 6.1 K/mm3 (1.3-6.7); Platelet Count Result 243 k/mm3 (150-375); Red Blood Count 3.99 M/mm3 (4.6-6.20); White Blood Count 9.2 K/mm3 (4.5-10.0)
[2020-12-16 14:21] LABS: Alanine Aminotransferase 26 U/L (4-50); Albumin Level 4.6 g/dL (3.5-5.1); Alkaline Phosphatase 90 U/L (38-126); Anion Gap 7 mmol/L (8-16); Aspartate Amino Transferase 38 U/L (17-59); Bilirubin,Total 0.4 mg/dL (0.2-1.3); Blood Urea Nitrogen 27 mg/dL (9-20); Calcium 11.5 mg/dL (8.4-10.2); Carbon Dioxide 24 mmol/L (22-30); Chloride 107 mmol/L (98-107); Estimated CRCL calculation 38 ml/min; Estimated Glomerular Filt Rate 42; Glucose 96 mg/dL (75-110); Sodium 138 mmol/L (137-145)
[2020-12-16 14:30] LABS: INR 0.9; Prothrombin Time 12.7 Seconds (11.1-14.7)
[2020-12-16 14:33] LABS: Partial Thromboplastin Time 25.5 SECONDS (22.3-36.8)
--- NOTE | 2020-12-16 15:35 | PC.NURSE ---
Landy Kincaid NP at bedside to discuss results with pt.
[2020-12-16] MEDS: LORazepam INJ (*CRX) 2 MG/ML VIAL 1 MG IV PUSH (16:18)
--- NOTE | 2020-12-16 16:22 | PC.NURSE ---
Pt to CT.
--- NOTE | 2020-12-16 17:54 | PC.NURSE ---
Pt states pain is becoming more severe again. Requesting more pain medication. [facility] made aware.
--- NOTE | 2020-12-16 18:05 | PC.NURSE ---
Pt accepted to [facility]. Accepting vascular attending is Dr. Dov Augustin.
--- NOTE | 2020-12-16 21:36 | PC.NURSE ---
Called [facility] for pt transport to [facility] room [id number]. ETA [id number]
--- NOTE | 2020-12-16 22:13 | PC.NURSE ---
Report given to EMS, pt taken by stretcher with belongings.
== END 2020-12-16 22:25 | disposition short-term general hospital (02) ==
PROVIDERS: Emergency Provider Nurse Practitioner; PCP Family Medicine
DX: I70.223 Atherosclerosis of native arteries of extremities with rest pain, bilateral legs (principal); K55.1 Chronic vascular disorders of intestine; I70.0 Atherosclerosis of aorta; I70.8 Atherosclerosis of other arteries; I35.0 Nonrheumatic aortic (valve) stenosis; I70.1 Atherosclerosis of renal artery; E03.9 Hypothyroidism, unspecified; N40.1 Benign prostatic hyperplasia with lower urinary tract symptoms; I25.10 Atherosclerotic heart disease of native coronary artery without angina pectoris; I10 Essential (primary) hypertension; E78.5 Hyperlipidemia, unspecified; K21.9 Gastro-esophageal reflux disease without esophagitis; J43.9 Emphysema, unspecified; M48.00 Spinal stenosis, site unspecified; Z85.46 Personal history of malignant neoplasm of prostate; Z85.51 Personal history of malignant neoplasm of bladder; Z86.73 Personal history of transient ischemic attack (TIA), and cerebral infarction without residual deficits; Z90.79 Acquired absence of other genital organ(s); Z87.891 Personal history of nicotine dependence; M19.072 Primary osteoarthritis, left ankle and foot; M77.52 Other enthesopathy of left foot and ankle; Z79.82 Long term (current) use of aspirin
CPT/HCPCS: 36415; 73552; 73590; 73630; 75635; 80053; 85025; 85610; 85730; 93923; 93970; 96374; 99285; A9270; J2060; Q9967

== ENCOUNTER 2021-04-29 12:10 | Inpatient (IN) | payer MEDICARE, SELFPAY ==
[2021-04-29] VITALS (10 sets, daily range): BP systolic 152–199; BP diastolic 42–111; PULSE 65–78; RESP 16–23; TEMP 36.4–36.9; O2SAT 96–98
--- NOTE | ~2021-04-29 | US_ITS ---
EXAMINATION: US carotid duplex BI EXAM DATE: 04/30/2021 15:46 INDICATION: Dizziness. Symptoms of stroke, paresis, lethargy, confusion, nausea. TECHNIQUE: Grayscale, color and pulsed Doppler images of the cervical carotid arteries were obtained . The degree of vessel stenosis is placed in one of the following categories: normal, <50% stenosis, 50-69% stenosis, >=70% stenosis but less than near-occlusion, near-occlusion, or occlusion. Note that percent stenosis relative to normal distal artery lumen diameter is indirectly measured from velocit y measurements as described by Watson, et al. Radiology 2003; [id number]. Comparison is made to prior examination from 11/19/2015. FINDINGS: RIGHT SIDE: Right common carotid artery peak systolic velocity (PSV in cm/s): 76 Right bulb/internal carotid artery peak systolic velocity (PSV in cm/s): 125 Right internal carotid artery end diastolic velocity (EDV in cm/s): 19 Right ICA/CCA peak systolic ratio: 1.7 Right external carotid artery peak systolic velocity (PSV in cm/s): 248 Right vertebral artery antegrade flow: yes There is mild to moderate carotid bulb plaque. Velocity and Doppler waveforms in the common and internal carotid arteries is normal. LEFT SIDE: Left common carotid artery peak systolic velocity (PSV in cm/s): 82 Left bulb/internal carotid artery peak systolic velocity (PSV in cm/s): 362 Left internal carotid artery end diastolic velocity (EDV in cm/s): 113 Left ICA/CCA peak systolic ratio: 4.4 Left external carotid artery peak systolic velocity (PSV in cm/s): 175 Left vertebral artery antegrade flow: yes Moderate to large amount of left carotid plaque with increased velocity corresponding to greater than 70% but less than near occlusion. There is spectral broadening indicating turbulent flow. Similar me asurement was obtained on carotid ultrasound in 2016. IMPRESSION: 1. Less than 50 percent stenosis in the right internal carotid artery. 2. Left carotid>=70% stenosis but less than near-occlusion. Reviewed, dictated and finalized at location B.
--- NOTE | ~2021-04-29 | XR_ITS ---
EXAMINATION: XR chest 2V DATE: 04/29/2021 13:55 INDICATION: Weakness TECHNIQUE: PA and lateral views of the chest were obtained. COMPARISON: Chest radiograph dated 07/13/2020 FINDINGS: Audrey biapical pleural-parenchymal scarring, right greater than left. No other airspace opacities, p ulmonary edema, pleural effusion or pneumothorax. The cardiomediastinal silhouette is normal. Persist ent widening of the right acromioclavicular joint with appearance suggesting prior distal right clavi kate resection. IMPRESSION: 1. Biapical pleural-parenchymal scarring. No acute cardiopulmonary disease. Reviewed, dictated and finalized at location A.
--- NOTE | ~2021-04-29 | MR_ITS ---
EXAMINATION: MR brain/brain stem wo con EXAM DATE: 04/30/2021 15:31 INDICATION: Dizziness. Symptoms of stroke. Paresis, lethargy, confusion. Nausea. TECHNIQUE: Magnetic resonance imaging (MRI) of the brain/brain stem obtained without contrast. Yvette al T1, axial diffusion, gradient echo (T2*), T1, T2, FLAIR sequences obtained. There is no prior st udy for comparison. FINDINGS: There are no areas of restricted diffusion to suggest acute infarction. There is no acute hemorrhage seen on the T2*, a hemosiderin sensitive sequence. No intraparenchymal brain mass lesion. Old bilateral basal ganglia lacunar infarctions. 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 There is moderate prominence of the sulci and ventricles related to cerebral atrop hy. There are no extra-axial collections. Flow voids are seen in the cerebral arteries on the T2-w eighted sequences consistent with their expected patency. Patient has had bilateral ocular lens surg nimo. Soft tissue is unremarkable. IMPRESSION: 1. No acute intracranial findings. 2. Chronic age related findings. 3. Old bilateral basal ganglia lacunar infarctions. Reviewed, dictated and finalized at location B.
--- NOTE | ~2021-04-29 | XR_ITS ---
EXAMINATION: XR chest 1V portable INDICATION: Hypoxia and fever TECHNIQUE: Portable AP chest at 1031 hours COMPARISON: 04/29/2021 FINDINGS: There are airspace opacities of the left lung base. No definite pleural effusion or pneumot horax is identified. The cardiomediastinal silhouette is normal. IMPRESSION: 1. Left basilar airspace opacity, consistent with atelectasis versus pneumonia. Reviewed, dictated and finalized at location A.
--- NOTE | ~2021-04-29 | CT_ITS ---
EXAMINATION: CT brain wo con DATE: 04/29/2021 18:10 INDICATION: Confusion, lethargy, Paresis, nausea TECHNIQUE: Computed tomography (CT) of the head was performed without intravenous contrast. The mA wa s adjusted according to patient size. Iterative reconstruction technique was employed. Exam dose: 60 5.33 mGy-cm total exam DLP. COMPARISON: 07/13/2020 CT head FINDINGS: There are bilateral chronic basal ganglia lacunar infarcts. Prominent bilateral carotid sip hon internal carotid artery calcifications and bilateral vertebral artery calcifications are noted. T here is nonspecific diminished attenuation of the cerebral white matter, likely due to chronic small vessel ischemic changes. No intracranial mass lesion or hemorrhage or cerebrovascular accident is detected. No midline shift o r mass effect effect. No subdural or epidural hematoma is detected. Mild to moderate cerebral and cerebellar volume loss consistent with patient age. There is no skull fracture or bone destruction. The included paranasal sinuses and mastoid air cells are normally developed and aerated. IMPRESSION: Bilateral chronic lacunar infarcts of the basal ganglia Cerebral atherosclerosis and chronic small vessel ischemic changes of the cerebral white matter No acute intracranial finding Reviewed, dictated and finalized at Location A. Reviewed, dictated and finalized at location A. IMPRESSION: Bilateral chronic lacunar infarcts of the basal ganglia Cerebral atherosclerosis and chronic small vessel ischemic changes of the cereb ral white matter No acute intracranial finding
--- NOTE | ~2021-04-29 | XR_ITS ---
MODIFIED ESOPHAGRAM HISTORY: Aspiration TECHNIQUE: Modified barium esophagram was performed by speech pathologist under radiologist fluorosco pic guidance. This was recorded on tape. The exam was reviewed on 05/06/2021 13:43 CDT. The DAP for this procedure was 2 Gycm2. Fluoroscopy time is 2 minutes. FINDINGS: Lateral projection of the cervical spine demonstrates normal alignment. Oral stage is wit hin normal limits. During pharyngeal stage there is reduced laryngeal elevation and tongue base retra ction. There is vallecular residue. There is laryngeal penetration with aspiration.. IMPRESSION: 1: Laryngeal penetration with aspiration. 2: Please refer to speech pathologist report for additional detail. Reviewed, dictated and finalized at location A.
--- NOTE | ~2021-04-29 | XR_ITS ---
EXAMINATION: XR barium swallow modified DATE: 05/02/2021 14:35 INDICATION: Aspiration pneumonia TECHNIQUE: Modified barium esophagram was performed by myself to administered fluoroscopy, in conjun ction with speech pathologist who administered barium in varying consistencies as per speech patholog ist documentation. This was recorded on tape. A single fluoroscopic spot image was recorded. The DAP for this procedure was 4.068 Gycm2. Fluoroscopy exposure time was 4.6 minutes. FINDINGS: Oral stage: Increased oral transit/bolus propulsion. Pharyngeal phase: Reduced laryngeal elevation, delayed pharyngeal swallow. Laryngeal penetration: Present. Aspiration: Present. Laryngeal sensitivity: Absent. IMPRESSION: Abnormal modified barium swallow as above. Please refer to speech pathologist findings an d specific feeding recommendations. Reviewed, dictated and finalized at location A. IMPRESSION: Abnormal modified barium swallow as above. Please refer to speech p athologist findings and specific feeding recommendations.
--- NOTE | 2021-04-29 12:22 | ECG_ITS ---
Measurements Intervals [place] Rate: 69 P: 56 NV: 142 QRS: 59 QRSD: 76 T: 79 QT: 377 QTc: 404 Interpretive Statements SINUS RHYTHM FREQUENT ATRIAL PREMATURE COMPLEXES EARLY PRECORDIAL R/S TRANSITION BASELINE ARTIFACT- II, III, AVL, AVF ABNORMAL ECG Electronically Signed On 04-29-2021 13:30:30 CDT by Tristen Lance D.O.
[2021-04-29 12:40] LABS: Basophils Percent Auto 0.4 % (0.2-1.2); Eosinophils Absolute Auto 0.4 K/mm3 (0-0.3); Eosinophils Percent Auto 4.6 % (0-4.4); Hemoglobin 12.5 g/dL (14.0-18.0); Immature Granulocyte Absolute 0.02 K/mm3 (0.00-0.031); Immature Granulocyte Percent A 0.2 % (0-0.5); Lymphocytes Absolute Auto 1.93 K/mm3 (0.9-3.2); Lymphocytes Percent Auto 23.4 % (18.3-44.2); Mean Corpuscular HGB Conc 31.3 g/dl (32-36); Mean Corpuscular Hemoglobin 28.8 pg (26-34); Mean Corpuscular Volume 92.2 fl (80-100); Mean Platelet Volume 8.8 fl (7.4-10.4); Monocytes Absolute Auto 0.9 K/mm3 (0.1-0.6); Neutrophils Percent Auto 60.4 % (45.5-73.1); Platelet Count Result 231 k/mm3 (150-375); Red Blood Count 4.34 M/mm3 (4.6-6.20); Red Cell Distribution Width 17.5 % (11.5-14.5); White Blood Count 8.2 K/mm3 (4.5-10.0)
[2021-04-29 12:54] LABS: Alanine Aminotransferase 24 U/L (4-50); Albumin Level 4.5 g/dL (3.5-5.1); Alkaline Phosphatase 86 U/L (38-126); Anion Gap 9 mmol/L (8-16); Aspartate Amino Transferase 23 U/L (17-59); Bilirubin,Total 0.2 mg/dL (0.2-1.3); Blood Urea Nitrogen 27 mg/dL (9-20); Calcium 12.5 mg/dL (8.4-10.2); Carbon Dioxide 25 mmol/L (22-30); Chloride 108 mmol/L (98-107); Estimated CRCL calculation 38 ml/min; Estimated Glomerular Filt Rate 42; Glucose 108 mg/dL (65-110); Potassium 4.6 mmol/L (3.4-5.0); Sodium 142 mmol/L (137-145)
[2021-04-29] MEDS: MECLIZINE HCL 25 MG TABLET PO (14:18)
[2021-04-29] MEDS: SODIUM CHLORIDE 0.9% IV 1,000 ML 999 ML IV CONT (14:19)
[2021-04-29 14:34] LABS: Add Urine Microscopic? NO; Appearance Urine Clear (Clear); Bilirubin Urine Negative (Negative); Blood Urine Negative (Negative); Color Urine Yellow (Yellow); Glucose Urine UA Negative (Negative); Ketones Urine Negative (Negative); Leukocyte Esterase Ur Negative LEU/UL (Negative); Nitrate Urine Negative (Negative); Protein Urine Negative (Negative); Specific Grav Ur 1.017 (1.001-1.035); Urobilinogen Urine Negative mg/dL (<2.0)
--- NOTE | 2021-04-29 16:43 | ED.GENADULT ---
HPI - General Adult General Chief complaint: Weakness <Agusto Rendon MD - Last Filed: 04/29/21 17:30> Stated complaint: diarrhea, cough, congestion <Agusto Rendon MD - Last Filed: 04/29/21 17:30> Time Seen by Provider: 04/29/21 13:17 <Agusto Rendon MD - Last Filed: 04/29/21 17:30> History of Present Illness HPI narrative: Patient is a 75-year-old male who presents ER with reports of dizziness. Reports has been happening to him intermittently over the last few days. Worse today. Symptoms worsen if he turns his head or looks up and down. It also occurs with positional change. Occasional nausea but no vomiting. Though confusion was reported to the nurse at triage neither patient nor spouse endorse confusion at this time. <Agusto Rendon MD - Last Filed: 04/29/21 17:30> Related Data Home medications: Home Medications Medication Instructions Recorded Confirmed albuterol sulfate 90 mcg/actuation 2 puff INHALATION Q4-6H PRN gm 07/05/19 04/29/21 aerosol inhaler aspirin 81 mg tablet,delayed 81 mg PO QPM 07/05/19 04/29/21 release cholecalciferol (vitamin D3) 25 1,000 unit PO DAILY 07/05/19 04/29/21 mcg (1,000 unit) capsule magnesium oxide 400 mg PO DAILY 07/05/19 04/29/21 atorvastatin 40 mg PO QAM 11/30/20 04/29/21 lisinopril 10 mg PO QPM 11/30/20 04/29/21 tamsulosin 0.4 mg capsule 0.4 mg PO QHS 01/22/21 04/29/21 gabapentin 400 mg PO QID 04/29/21 04/29/21 metoprolol succinate 22 mg PO DAILY 04/29/21 04/29/21 <Agusto Rendon MD - Last Filed: 04/29/21 17:30> Allergies/adverse reactions: Allergies Allergy/AdvReac Type Severity Reaction Status Date / Time No Known Allergies Allergy Verified 04/04/21 13:07 <Agusto Rendon MD - Last Filed: 04/29/21 17:30> Review of Systems Review of Systems: All systems reviewed & are unremarkable except as noted in HPI and below <Agusto Rendon MD - Last Filed: 04/29/21 17:30> Constitutional: Constitutional: Denies chills, Denies fever(s) and Reports weakness <Agusto Rendon MD - Last Filed: 04/29/21 17:30> ENT: Reports dizziness, Denies nasal congestion and Denies sore throat <Agusto Rendon MD - Last Filed: 04/29/21 17:30> Cardiovascular: Cardiovascular: Denies chest pain and Denies radiating jaw, neck or arm pain <Agusto Rendon MD - Last Filed: 04/29/21 17:30> Respiratory: Respiratory: Denies cough and Denies dyspnea <Agusto Rendon MD - Last Filed: 04/29/21 17:30> Gastrointestinal: Gastrointestinal: Denies abdominal pain, Reports nausea and Denies vomiting <Agsuto Rendon MD - Last Filed: 04/29/21 17:30> Neurologic: Reports dizziness, Denies headache(s), Denies focal weakness and Denies numbness <Agusto Rendon MD - Last Filed: 04/29/21 17:30> [facility] Past Medical History Medical History: Medical History Acquired hypothyroidism Benign prostatic hyperplasia with lower urinary tract symptoms Carotid artery disease Cataracts, bilateral COPD (chronic obstructive pulmonary disease) Essential (primary) hypertension GERD (gastroesophageal reflux disease) GI bleed History of prostate cancer History of TIAs HLD (hyperlipidemia) Lumbar spondylosis 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
[2021-04-29] MEDS: METOPROLOL SUCCINATE EXT REL 25 MG TABCR PO (19:03)
[2021-04-29] MEDS: SODIUM CHLORIDE 0.9% IV 1,000 ML 125 ML IV CONT (21:57)
--- NOTE | 2021-04-29 22:30 | PM.IMHP ---
H&P: HPI History of Present Illness Date/Time: 04/29/21 22:30 this is a 75-year-old male patient who has a past medical history of carotid artery disease. The patient is waiting for a his carotid enterectomy. The patient came to the emergency room with complaints of dizziness. Patient stated he has never had an episode like this before. The symptoms started approximately 2-3 days ago but got worse today. If he lay still the symptoms resolved but the minute he turns his head or gets up and walks it gets worse. The patient has postural vertigo. The patient was sleeping and woke up in a confused state pulled out his IV and pulled off his monitor but is more awake and alert now and answering questions. The patient does have peripheral artery disease and has been on a low-dose aspirin. Patient's head CT was read as bilateral chronic lacunar infarcts of the basal ganglia. Cerebral atherosclerosis and chronic small-vessel ischemic changes the cerebral white matter. No acute intracranial finding. Chest x-ray was read as biapical pleural parenchymal scarring. No acute cardiopulmonary disease. Patient was given IV fluids, metoprolol and meclizine. The patient stated that he feels somewhat better. His H&H is 12.5 and 40.0. However this appears to be his baseline. His creatinine is 1.6. The patient is being admitted to observation status on the date of service of 04/29/2021. Chief Complaint: Dizziness Review of Systems Review of Systems: All systems reviewed & are unremarkable except as noted in HPI and below Constitutional: Constitutional: Reports as per HPI and Reports no additional constitutional complaints Eyes: Eyes: Reports as per HPI and Reports no additional eye complaints ENT: Reports system reviewed and no additional complaints, except as documented and Reports Normal hearing present Cardiovascular: Cardiovascular: Reports no additional cardiovascular complaints Respiratory: Respiratory: Reports no additional respiratory complaints and Reports no additional respiratory complaints Gastrointestinal: Gastrointestinal: Reports as per HPI and Reports no additional gastrointestinal complaints Musculoskeletal: Musculoskeletal: Reports no additional musculoskeletal complaints Integumentary/Breasts: Skin/Breast: Reports system reviewed and no additional complaints, except as docu and Reports as per HPI Neurologic: Reports system reviewed and no additional complaints, except as documented, Reports as per HPI and Reports Normal hearing present Psychiatric: Psychiatric: Reports no additional psychiatric complaints and Reports as per HPI Endocrine: Endocrine: Reports no additional endocrine complaints Hematologic/Lymphatic: Hematologic/Lymphatic: Reports no additional hematologic/lymphatic complaints Allergic/Immunologic: Allergic/Immunologic: Reports no additional allergic/immunologic complaints [facility] Past Medical History Medical History (Updated 04/29/21 @ 22:47 by Lula Perez NP) Acquired hypothyroidism Benign prostatic hyperplasia with lower urinary tract symptoms Carotid artery disease Patient stated that he is scheduled to receive a carotid endarterectomy. 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
[2021-04-29] MEDS: LORazepam INJ (*CRX) 2 MG/ML VIAL 0.5 MG IV PUSH (23:44)
[2021-04-29] MEDS: GABAPENTIN 400 MG CAPSULE PO (23:46)
[2021-04-29] MEDS: TAMSULOSIN HCL 0.4 MG CAPSULE PO (23:46)
[2021-04-30] VITALS (7 sets, daily range): BP systolic 155–210; BP diastolic 70–120; PULSE 0–87; RESP 16–18; TEMP 36.6–38.3; O2SAT 91–97; BMI 26.9
--- NOTE | 2021-04-30 00:31 | ADMGEN ---
04/29/21 at 2004-- This patient, Albert Soliz, was admitted to 3 [facility] Surg Room 307-01. Patient/family oriented to hospital policies and general routines including ID bracelet, bed and alarms, visiting hours, pain management, procedures, bathroom and other care routines, personal items, smoking policy, room service/diet, and visiting hours. Information on how to activate the Rapid Response Team has been discussed. Patient/Family are encouraged to report perceived risks to care and to ask questions if they do not understand what they are told or what they should do. TDialRNC
--- NOTE | 2021-04-30 06:00 | ECHO_ITS ---
Patient Info Name: Albert Soliz Age: 75 years : 1945 Gender: Male Ht: 71 in Wt: 180 lbs BSA: 2.03 m2 HR: 75 bpm BP: 184 / 75 mmHg Heart Rhythm: Sinus Rhythm Exam Date: 04/30/2021 8:54 AM Exam Location: [facility] Pulmonary Patient Status: Outpatient Admit Date: 04/29/2021 Staff Ordering Physician: Alma Delia Yusuf MD Wringer And Setter: NOMI Attending Provider: Emperatriz Leblanc PA-C Referring Physician: Paramjit VILLASEÑOR; Exam Type: CA echo doppler color flow Study Info Indications - DIZZINESS Complete two-dimensional, color flow and Doppler transthoracic echocardiogram is performed. Summary 1. Complete two-dimensional, color flow and Doppler transthoracic echocardiogram is performed. 2. Left ventricular chamber dimension is normal. 3. Left ventricular systolic function is normal, estimated at 65-70%. 4. The left ventricular diastolic function is grade I diastolic dysfunction. 5. E/e' 19 is elevated. 6. Left atrial chamber dimension is mildly enlarged. 7. There is small circumferential pericardial effusion. Left Ventricle E/e' 19 is elevated. Left ventricular chamber dimension is normal. Left ventricular systolic function is normal, estimated at 65-70%. The left ventricular diastolic function is grade I diastolic dysfunction. Right Ventricle Right ventricular chamber dimension is normal. Right ventricular systolic function is normal. Left Atria Left atrial chamber dimension is mildly enlarged. Right Atria Right atrial chamber dimension is normal. Aortic Valve The aortic valve is trileaflet. There is no aortic valve stenosis. There is no aortic valve regurgitation. Pulmonic Valve There is no pulmonic regurgitation. Mitral Valve There is no mitral valve stenosis. There is no mitral valve regurgitation. Tricuspid Valve There is no tricuspid valve regurgitation. Pericardium/Pleural There is small circumferential pericardial effusion. Inferior Vena Cava Normal inferior vena cava with >50% collapse upon inspiration consistent with normal right atrial pressure, 5 mmHg. Aorta The aortic root size at the sinus of Valsalva is normal. Tricuspid Valve Name Value Normal Estimated PAP/RSVP RA Pressure 5 mmHg <=5 Report Signatures
[2021-04-30 06:19] LABS: Basophils Absolute Auto 0.1 K/mm3 (0.0-0.1); Basophils Percent Auto 0.7 % (0.2-1.2); Eosinophils Absolute Auto 0.4 K/mm3 (0-0.3); Eosinophils Percent Auto 5.7 % (0-4.4); Hematocrit 39.8 % (42.0-52.0); Hemoglobin 12.4 g/dL (14.0-18.0); Immature Granulocyte Absolute 0.03 K/mm3 (0.00-0.031); Immature Granulocyte Percent A 0.4 % (0-0.5); Lymphocytes Absolute Auto 1.44 K/mm3 (0.9-3.2); Lymphocytes Percent Auto 19.2 % (18.3-44.2); Mean Corpuscular HGB Conc 31.2 g/dl (32-36); Mean Corpuscular Hemoglobin 28.4 pg (26-34); Mean Corpuscular Volume 91.3 fl (80-100); Mean Platelet Volume 9.3 fl (7.4-10.4); Monocytes Absolute Auto 0.9 K/mm3 (0.1-0.6); Monocytes Percent Auto 11.7 % (2.6-8.5); Neutrophils Absolute Auto 4.7 K/mm3 (1.3-6.7); Neutrophils Percent Auto 62.3 % (45.5-73.1); Platelet Count Result 219 k/mm3 (150-375); Red Blood Count 4.36 M/mm3 (4.6-6.20); White Blood Count 7.5 K/mm3 (4.5-10.0)
[2021-04-30 06:43] LABS: Alanine Aminotransferase 21 U/L (4-50); Albumin Level 4.1 g/dL (3.5-5.1); Alkaline Phosphatase 88 U/L (38-126); Anion Gap 8 mmol/L (8-16); Aspartate Amino Transferase 21 U/L (17-59); Bilirubin,Total 0.5 mg/dL (0.2-1.3); Blood Urea Nitrogen 23 mg/dL (9-20); Calcium 11.5 mg/dL (8.4-10.2); Carbon Dioxide 23 mmol/L (22-30); Chloride 108 mmol/L (98-107); Estimated CRCL calculation 51 ml/min; Estimated Glomerular Filt Rate 59; Glucose 96 mg/dL (65-110); Lactate Dehydrogenase 375 U/L (313-618); Magnesium 1.5 mg/dL (1.6-2.3); Phosphorus 2.8 mg/dL (2.5-4.5); Potassium 4.4 mmol/L (3.4-5.0); Sodium 139 mmol/L (137-145)
[2021-04-30] MEDS: LEVOTHYROXINE SODIUM 112 MCG TABLET PO (06:44)
[2021-04-30 06:50] LABS: Parathyroid Intact 146.1 pg/mL (7.5-53.5)
[2021-04-30 07:22] LABS: Vitamin D 25 Hydroxy 35.3 ng/mL
[2021-04-30] MEDS: FLUTICASONE/UMECLIDIN/VILANTER 100-62.5-25 MCG ELLIPTA 1 PUFF INHALATION (08:12)
[2021-04-30] MEDS: MAGNESIUM SULF 2 GM/WATER 50ML 2 GM/50 ML BAG IVPB (09:51)
[2021-04-30] MEDS: GABAPENTIN 400 MG CAPSULE PO ×4 (09:52→20:27)
[2021-04-30] MEDS: METOPROLOL SUCCINATE EXT REL 25 MG TABCR PO (09:52)
--- NOTE | 2021-04-30 11:46 | P.PNIM_ITS ---
Progress Note: A&P Assessment and Plan (1) Altered mental status: Code(s): R41.82 - Altered mental status, unspecified Status: Acute Assessment and Plan: Presented with increased confusion and dizziness. Given his history of carotid artery disease, this was concerning for stroke. * Head CT with no acute findings * Brain MRI with no acute findings and evidence of old bilateral lacunar infarcts and chronic age-related findings * notes that for several months he has had worsening memory and she has been concerned about him having dementia. * Will check TSH, B12, folate, and ammonia * May be related to hypercalcemia. Additional electrolytes are stable. * UA without concerns for infection. No other signs or symptoms to suggest underlying infection * Monitor mental status closely * Consider Neurology evaluation if no further improvement (2) Vertigo: Code(s): R42 - Dizziness and giddiness Status: Acute Assessment and Plan: Presented with complaints of dizziness, though not complaining of this on my exam today * Check orthostatic blood pressures * Continue with meclizine * Fall precautions * Consider neurology consultation if no improvement (3) Hypercalcemia: Code(s): E83.52 - Hypercalcemia Status: Acute Assessment and Plan: Review of prior labs demonstrates this to be a chronic issue. Calcium is 11.5 today, improved with IV fluid rehydration. * Continue to monitor calcium levels daily * Intact PTH is elevated. He may benefit from parathyroid scan as an outpatient. Will discuss with his PCP. * Additional workup including ionized calcium levels, urine calcium, protein electrophoresis pending (4) Visual hallucination: Code(s): R44.1 - Visual hallucinations Status: Acute Assessment and Plan: reported he was seeing grass and ribbon on their carpet in their home. Please see subjective for further details. Patient unable to elaborate on this. * May be related to dementia. * No signs or symptoms to suggest infection * Hallucinations seem to have resolved based on obtainable history * Continue with plan as above (5) Hypertensive urgency: Code(s): I16.0 - Hypertensive urgency Status: Acute Assessment and Plan: Blood pressure has been elevated above target. Appears his blood pressure has been above goal for some time. Systolic BP has been elevated up to 200. * Administer IV hydralazine q8h prn systolic BP >170 or diastolic BP >100 * Increase lisinopril to 20 mg daily * Continue metoprolol succinate 25 mg daily * He missed his antihypertensives prior to admission and also received several liters of IV fluids which could have contributed to BP elevation. Additionally stress related to hospitalization may be contributing. (6) Carotid artery disease: Code(s): I73.9 - Peripheral vascular disease, unspecified Status: Acute Assessment and Plan: Established with vascular surgeon at [facility], last appointment was reported to have 75% occlusion. Carotid endarterectomy has been discussed but no plans to proceed with this at this time given he is at less than near occlusion * Carotid Doppler performed today with <50% stenosis in the right internal carotid and >70% stenosis of the left carotid but less than near occlusion * He will need to follow-up with his vascular surgeon as an outpatient (7) Frequent falls: Code(s): R29.6 - Repeated falls Status: Acute Assessment and Plan: Patient's wi
--- NOTE | 2021-04-30 11:46 | PM.IMPN ---
Progress Note: A&P Assessment and Plan (1) Altered mental status: Code(s): R41.82 - Altered mental status, unspecified Status: Acute Assessment and Plan: Presented with increased confusion and dizziness. Given his history of carotid artery disease, this was concerning for stroke. Head CT with no acute findings Brain MRI with no acute findings and evidence of old bilateral lacunar infarcts and chronic age-related findings notes that for several months he has had worsening memory and she has been concerned about him having dementia. Will check TSH, B12, folate, and ammonia May be related to hypercalcemia. Additional electrolytes are stable. UA without concerns for infection. No other signs or symptoms to suggest underlying infection Monitor mental status closely Consider Neurology evaluation if no further improvement (2) Vertigo: Code(s): R42 - Dizziness and giddiness Status: Acute Assessment and Plan: Presented with complaints of dizziness, though not complaining of this on my exam today Check orthostatic blood pressures Continue with meclizine Fall precautions Consider neurology consultation if no improvement (3) Hypercalcemia: Code(s): E83.52 - Hypercalcemia Status: Acute Assessment and Plan: Review of prior labs demonstrates this to be a chronic issue. Calcium is 11.5 today, improved with IV fluid rehydration. Continue to monitor calcium levels daily Intact PTH is elevated. He may benefit from parathyroid scan as an outpatient. Will discuss with his PCP. Additional workup including ionized calcium levels, urine calcium, protein electrophoresis pending (4) Visual hallucination: Code(s): R44.1 - Visual hallucinations Status: Acute Assessment and Plan: reported he was seeing grass and ribbon on their carpet in their home. Please see subjective for further details. Patient unable to elaborate on this. May be related to dementia. No signs or symptoms to suggest infection Hallucinations seem to have resolved based on obtainable history Continue with plan as above (5) Hypertensive urgency: Code(s): I16.0 - Hypertensive urgency Status: Acute Assessment and Plan: Blood pressure has been elevated above target. Appears his blood pressure has been above goal for some time. Systolic BP has been elevated up to 200. Administer IV hydralazine q8h prn systolic BP >170 or diastolic BP >100 Increase lisinopril to 20 mg daily Continue metoprolol succinate 25 mg daily He missed his antihypertensives prior to admission and also received several liters of IV fluids which could have contributed to BP elevation. Additionally stress related to hospitalization may be contributing. (6) Carotid artery disease: Code(s): I73.9 - Peripheral vascular disease, unspecified Status: Acute Assessment and Plan: Established with vascular surgeon at [facility], last appointment was reported to have 75% occlusion. Carotid endarterectomy has been discussed but no plans to proceed with this at this time given he is at less than near occlusion Carotid Doppler performed today with <50% stenosis in the right internal carotid and >70% stenosis of the left carotid but less than near occlusion He will need to follow-up with his vascular surgeon as an outpatient (7) Frequent falls: Code(s): R29.6 - Repeated falls Status: Acute Assessment and Plan: Patient's reports he is unsteady and has frequent falls at home. No recent falls or injury. Fall precautions Appreciate PT/OT eval (8) Acquired hypothyroidism: Code(s): E03.9 - Hypothyroidism, unspecified Status: Acute Assessment and Plan: TSH is elevated, free T4 still pending Continue with levothyroxine at current dose while awaiting T4 and T3 levels Subjective Date/time seen: 04/30/21 11:46
--- NOTE | 2021-04-30 11:58 | PC.NURSE ---
Waiting St eval for discharging pt to home, St called and informed for eval for pt to discharge home, stated possible able to this afternoon. Informed Emperatriz FREGOSO.
[2021-04-30] MEDS: lisinopriL 10 MG TABLET PO (12:10)
[2021-04-30] MEDS: ASPIRIN 81 MG ENTERIC TABLET PO (12:10)
[2021-04-30] MEDS: ATORVASTATIN 40 MG TABLET PO (12:10)
[2021-04-30] MEDS: PANTOPRAZOLE 40 MG TABLET PO ×2 (12:11→16:43)
[2021-04-30] MEDS: MECLIZINE HCL 6.25 MG TABLET PO ×2 (12:11→16:43)
[2021-04-30] MEDS: MAGNESIUM OXIDE 400 MG TABLET PO (12:11)
[2021-04-30] MEDS: LORazepam INJ (*CRX) 2 MG/ML VIAL 0.5 MG IV PUSH (14:45)
[2021-04-30] MEDS: hydrALAZINE HCL 20 MG/ML VIAL 10 MG IV PUSH (16:42)
[2021-04-30] MEDS: TAMSULOSIN HCL 0.4 MG CAPSULE PO (20:27)
[2021-04-30] MEDS: ACETAMINOPHEN 325 MG TABLET 650 MG PO (23:03)
[2021-05-01] VITALS (15 sets, daily range): BP systolic 109–162; BP diastolic 51–99; PULSE 77–98; RESP 18–22; TEMP 36.7–39.3; O2SAT 88–98
[2021-05-01 03:50] LABS: Free T4 Free Thyroxine Reflex 0.76 ng/dL (0.78-2.19)
[2021-05-01] MEDS: LEVOTHYROXINE SODIUM 112 MCG TABLET PO (05:46)
[2021-05-01 06:52] LABS: Ammonia < 9 umol/L (9-30)
[2021-05-01 07:07] LABS: Hematocrit 41.1 % (42.0-52.0); Hemoglobin 13.1 g/dL (14.0-18.0); Mean Corpuscular HGB Conc 31.9 g/dl (32-36); Mean Corpuscular Hemoglobin 28.4 pg (26-34); Mean Corpuscular Volume 89.2 fl (80-100); Mean Platelet Volume 9.5 fl (7.4-10.4); Platelet Count Result 248 k/mm3 (150-375); Red Blood Count 4.61 M/mm3 (4.6-6.20); Red Cell Distribution Width 17.5 % (11.5-14.5)
[2021-05-01 07:09] LABS: Alanine Aminotransferase 20 U/L (4-50); Albumin Level 4.4 g/dL (3.5-5.1); Alkaline Phosphatase 91 U/L (38-126); Anion Gap 11 mmol/L (8-16); Aspartate Amino Transferase 21 U/L (17-59); Bilirubin,Total 0.5 mg/dL (0.2-1.3); Blood Urea Nitrogen 24 mg/dL (9-20); Calcium 11.8 mg/dL (8.4-10.2); Carbon Dioxide 23 mmol/L (22-30); Chloride 104 mmol/L (98-107); Estimated CRCL calculation 41 ml/min; Estimated Glomerular Filt Rate 46; Glucose 115 mg/dL (65-110); Magnesium 1.9 mg/dL (1.6-2.3); Potassium 4.8 mmol/L (3.4-5.0); Sodium 138 mmol/L (137-145)
--- NOTE | 2021-05-01 08:41 | PCOTNOTE ---
Attempted OT evaluation, patient not appropriate for therapy this AM per RN, will follow and attempt at later time.
[2021-05-01 09:44] LABS: Influenza Control Positive
[2021-05-01] MEDS: FLUTICASONE/UMECLIDIN/VILANTER 100-62.5-25 MCG ELLIPTA 1 PUFF INHALATION (10:03)
--- NOTE | 2021-05-01 12:19 | P.PNIM_ITS ---
Progress Note: A&P Assessment and Plan (1) Sepsis: Code(s): A41.9 - Sepsis, unspecified organism Status: Acute Assessment and Plan: Overnight, patient developed fever (T-max 102.7?)and leukocytosis. Source of infection felt to be pneumonia. * Blood cultures pending * Initiated on IV antibiotics * Antipyretics for fever * Monitor vital signs, labs, intake and output (2) Pneumonia: Code(s): J18.9 - Pneumonia, unspecified organism Status: Acute Assessment and Plan: Patient with new onset fever and hypoxia down to 88% on room air. Currently requiring 2 L per nasal cannula. Rhonchi heard on exam. Concerning for aspiration given patient's mental status changes. * Unasyn initiated given concerns for aspiration * Will also initiate azithromycin for full coverage of CAP. * Influenza negative. COVID-19 test pending, continue isolation precautions. Completed geolad vaccination in October 2020. * Supportive care to include bronchodilators, expectorants, antipyretics, incentive spirometry * Supplemental O2 as needed with goal saturation 90% or above. Titrate to goal. * Bedside swallow study ordered. Appreciate ST diony (3) Altered mental status: Code(s): R41.82 - Altered mental status, unspecified Status: Acute Assessment and Plan: Presented with increased confusion and dizziness. Initially concerning for stroke, however no acute findings on imaging. May be related to acute infectious process. * Head CT with no acute findings * Brain MRI with no acute findings and evidence of old bilateral lacunar infarcts and chronic age-related findings * notes that for several months he has had worsening memory and she has been concerned about him having dementia. * Ammonia within normal limits, TSH slightly elevated, B12 and folate pending. Unlikely to be related to hypercalcemia given very mild elevation. Additional electrolytes are stable. * Monitor mental status closely * Consider Neurology evaluation if no improvement with treatment of infection (4) Vertigo: Code(s): R42 - Dizziness and giddiness Status: Acute Assessment and Plan: Presented with complaints of dizziness that seems to have resolved. * Check orthostatic blood pressures * Continue with meclizine prn * Fall precautions (5) Hypercalcemia: Code(s): E83.52 - Hypercalcemia Status: Acute Assessment and Plan: Review of prior labs demonstrates this to be a chronic issue ongoing for >1 year. Calcium is 11.8 today, improved with IV fluid rehydration. * Continue to monitor calcium levels daily * Intact PTH is elevated. He may benefit from parathyroid scan as an outpatient. Will discuss with his PCP. * Additional workup including ionized calcium levels, urine calcium, protein electrophoresis pending (6) Visual hallucination: Code(s): R44.1 - Visual hallucinations Status: Acute Assessment and Plan: reported he was seeing grass and ribbon on their carpet in their home. Patient unable to elaborate on this. * May be related to acute illness vs dementia. * Hallucinations seem to have resolved based on obtainable history * Continue with plan as above (7) Hypertensive urgency: Code(s): I16.0 - Hypertensive urgency Status: Acute Assessment and Plan: Blood pressure had been elevated above target, with systolic BP >200. I suspect this was related to missing his antihypertensives prior to admission as well as IV fluid rehydratio
--- NOTE | 2021-05-01 12:19 | PM.IMPN ---
Progress Note: A&P Assessment and Plan (1) Sepsis: Code(s): A41.9 - Sepsis, unspecified organism Status: Acute Assessment and Plan: Overnight, patient developed fever (T-max 102.7?)and leukocytosis. Source of infection felt to be pneumonia. Blood cultures pending Initiated on IV antibiotics Antipyretics for fever Monitor vital signs, labs, intake and output (2) Pneumonia: Code(s): J18.9 - Pneumonia, unspecified organism Status: Acute Assessment and Plan: Patient with new onset fever and hypoxia down to 88% on room air. Currently requiring 2 L per nasal cannula. Rhonchi heard on exam. Concerning for aspiration given patient's mental status changes. Unasyn initiated given concerns for aspiration Will also initiate azithromycin for full coverage of CAP. Influenza negative. COVID-19 test pending, continue isolation precautions. Completed Pfizer vaccination in October 2020. Supportive care to include bronchodilators, expectorants, antipyretics, incentive spirometry Supplemental O2 as needed with goal saturation 90% or above. Titrate to goal. Bedside swallow study ordered. Appreciate ST eval (3) Altered mental status: Code(s): R41.82 - Altered mental status, unspecified Status: Acute Assessment and Plan: Presented with increased confusion and dizziness. Initially concerning for stroke, however no acute findings on imaging. May be related to acute infectious process. Head CT with no acute findings Brain MRI with no acute findings and evidence of old bilateral lacunar infarcts and chronic age-related findings notes that for several months he has had worsening memory and she has been concerned about him having dementia. Ammonia within normal limits, TSH slightly elevated, B12 and folate pending. Unlikely to be related to hypercalcemia given very mild elevation. Additional electrolytes are stable. Monitor mental status closely Consider Neurology evaluation if no improvement with treatment of infection (4) Vertigo: Code(s): R42 - Dizziness and giddiness Status: Acute Assessment and Plan: Presented with complaints of dizziness that seems to have resolved. Check orthostatic blood pressures Continue with meclizine prn Fall precautions (5) Hypercalcemia: Code(s): E83.52 - Hypercalcemia Status: Acute Assessment and Plan: Review of prior labs demonstrates this to be a chronic issue ongoing for >1 year. Calcium is 11.8 today, improved with IV fluid rehydration. Continue to monitor calcium levels daily Intact PTH is elevated. He may benefit from parathyroid scan as an outpatient. Will discuss with his PCP. Additional workup including ionized calcium levels, urine calcium, protein electrophoresis pending (6) Visual hallucination: Code(s): R44.1 - Visual hallucinations Status: Acute Assessment and Plan: reported he was seeing grass and ribbon on their carpet in their home. Patient unable to elaborate on this. May be related to acute illness vs dementia. Hallucinations seem to have resolved based on obtainable history Continue with plan as above (7) Hypertensive urgency: Code(s): I16.0 - Hypertensive urgency Status: Acute Assessment and Plan: Blood pressure had been elevated above target, with systolic BP >200. I suspect this was related to missing his antihypertensives prior to admission as well as IV fluid rehydration contributing to BP elevation. Blood pressure has improved at appropriate rate with last BP 152/78. Continue lisinopril at increased dose 20 mg daily. Continue metoprolol succinate 25 mg daily. IV hydralazine q8h prn systolic BP >170 or diastolic BP >100 (8) Carotid artery disease: Code(s): I73.9 - Peripheral vascular disease, unspecified Status: Acute Assessment and Plan: Established with vascular surgeon
--- NOTE | 2021-05-01 12:45 | PCPTNOTE ---
Attempted PT evaluation, patient not appropriate for therapy this AM per RN, will follow and attempt at later time.
[2021-05-01] MEDS: AMPICILLIN SULB 3 GM/NS 100 ML 3 GM/100 ML VIAL IVPB ×2 (13:00→17:40)
--- NOTE | 2021-05-01 14:35 | PCOTNOTE ---
Attempted OT evaluation at 13:15PM, patient unarousable at this time, will follow and attempt in AM.
--- NOTE | 2021-05-01 14:42 | PCPTNOTE ---
Attempted PT eval at 1315. Pt drowsyw/ mumbled speech. Unable to follow commands. Pt unable to participate w/ therapy. Will try again tomorrow.
--- NOTE | 2021-05-01 16:35 | PCSTNOTE ---
Please refer to the Bedside Swallow Evaluation in the EMR. Please note, silent aspiration cannot be ruled out at bedside.
[2021-05-01 17:20] LABS: Folic Acid 11.5 ng/mL (2.76->20)
[2021-05-01] MEDS: MECLIZINE HCL 6.25 MG TABLET PO (18:06)
[2021-05-01] MEDS: ATORVASTATIN 40 MG TABLET PO (18:07)
[2021-05-01] MEDS: MAGNESIUM OXIDE 400 MG TABLET PO (18:07)
[2021-05-01] MEDS: GABAPENTIN 400 MG CAPSULE PO ×2 (18:07→21:54)
[2021-05-01] MEDS: ASPIRIN 81 MG ENTERIC TABLET PO (18:08)
[2021-05-01] MEDS: PANTOPRAZOLE 40 MG TABLET PO (18:08)
[2021-05-01] MEDS: lisinopriL 20 MG TABLET PO (18:10)
[2021-05-01] MEDS: METOPROLOL SUCCINATE EXT REL 25 MG TABCR PO (18:10)
[2021-05-01] MEDS: TAMSULOSIN HCL 0.4 MG CAPSULE PO (21:54)
[2021-05-01 22:41] LABS: SARS-CoV-2 RNA PCR Negative
[2021-05-02] VITALS (19 sets, daily range): BP systolic 104–148; BP diastolic 47–94; PULSE 75–90; RESP 16–20; TEMP 36.3–36.7; O2SAT 88–98
[2021-05-02] MEDS: AMPICILLIN SULB 3 GM/NS 100 ML 3 GM/100 ML VIAL IVPB ×4 (00:55→17:14)
[2021-05-02] MEDS: LEVOTHYROXINE SODIUM 150 MCG TABLET PO (05:33)
[2021-05-02 06:58] LABS: Hematocrit 41.5 % (42.0-52.0); Hemoglobin 12.8 g/dL (14.0-18.0); Mean Corpuscular HGB Conc 30.8 g/dl (32-36); Mean Corpuscular Hemoglobin 28.8 pg (26-34); Mean Corpuscular Volume 93.3 fl (80-100); Mean Platelet Volume 9.8 fl (7.4-10.4); Platelet Count Result 209 k/mm3 (150-375); Red Blood Count 4.45 M/mm3 (4.6-6.20); Red Cell Distribution Width 17.6 % (11.5-14.5); White Blood Count 11.9 K/mm3 (4.5-10.0)
[2021-05-02 07:15] LABS: Anion Gap 7 mmol/L (8-16); Blood Urea Nitrogen 28 mg/dL (9-20); Calcium 11.6 mg/dL (8.4-10.2); Carbon Dioxide 26 mmol/L (22-30); Chloride 104 mmol/L (98-107); Estimated CRCL calculation 41 ml/min; Estimated Glomerular Filt Rate 46; Glucose 100 mg/dL (65-110); Potassium 4.5 mmol/L (3.4-5.0); Sodium 137 mmol/L (137-145)
[2021-05-02 07:35] LABS: CRP 28.6 mg/dL (<1.0)
--- NOTE | 2021-05-02 08:43 | P.PNIM_ITS ---
Progress Note: A&P Assessment and Plan (1) Sepsis: Code(s): A41.9 - Sepsis, unspecified organism Status: Acute Assessment and Plan: Patient met sepsis criteria with fever (Tmax 102.7) and leukocytosis. Source of infection likely pneumonia. He is afebrile today. Leukocytosis is improving. * Blood cultures pending, preliminary with no growth * Initiated on IV antibiotics, see below * Antipyretics for fever * Monitor vital signs, labs, intake and output (2) Pneumonia: Code(s): J18.9 - Pneumonia, unspecified organism Status: Acute Assessment and Plan: Patient with new onset fever and hypoxia down to 88% on room air on 04/30. Currently requiring 4 L per nasal cannula. He had new onset upper airway gurgling and with his altered mental status, this was concerning for aspiration. * Continue Unasyn given concerns for aspiration * Also started on azithromycin for full coverage of CAP. * Sputum culture ordered if patient is able to provide specimen * Influenza negative. COVID negative, isolation precautions discontinued. Completed Landis+Gyr vaccination in October 2020. * Supportive care to include bronchodilators, expectorants, antipyretics, incentive spirometry, Cornet for secretions * Supplemental O2 as needed with goal saturation 90% or above. Titrate to goal. He is maintaining O2 sats >95%, therefore O2 should be weaned. * Bedside swallow study performed 05/01 without evidence of aspiration but with recommendations for minced and moist diet due to fatigue. He may benefit from MBS, and I have left a message with ST to discuss this. Aspiration precautions implemented (3) Altered mental status: Code(s): R41.82 - Altered mental status, unspecified Status: Acute Assessment and Plan: Presented with increased confusion and dizziness. Initially concerning for stroke, however no acute findings on imaging. May be related to acute infectious process. Significant improvement in mental status today, A&Ox4. * Head CT with no acute findings * Brain MRI with no acute findings and evidence of old bilateral lacunar infarcts and chronic age-related findings * notes that for several months he has had worsening memory and she has been concerned about him having dementia. * Ammonia and folate within normal limits, TSH slightly elevated, B12 low and will be supplemented. Unlikely to be related to hypercalcemia given very mild elevation. Additional electrolytes are stable. * Monitor mental status closely * Consider Neurology evaluation if no improvement with treatment of infection (4) Vertigo: Code(s): R42 - Dizziness and giddiness Status: Acute Assessment and Plan: Presented with complaints of dizziness that has resolved. * No evidence of orthostasis from supine to sitting position; full orthostatics not able to be performed yesterday. Attempt to obtain orthostatics again today. * Continue with meclizine prn * Fall precautions (5) Hypercalcemia: Code(s): E83.52 - Hypercalcemia Status: Acute Assessment and Plan: Review of prior labs demonstrates this to be a chronic issue ongoing for >1 year. Calcium is 11.6 today, improved with IV fluid rehydration. * Continue to monitor calcium levels daily * Intact PTH is elevated. He may benefit from parathyroid scan as an outpatient. Will discuss with his PCP. * Additional workup including ionized calcium levels, urine calcium, protein electrophoresis pending (6) Visual hallucination: Code(s): R44.1 - Visual hallucinations
--- NOTE | 2021-05-02 08:43 | PM.IMPN ---
Progress Note: A&P Assessment and Plan (1) Sepsis: Code(s): A41.9 - Sepsis, unspecified organism Status: Acute Assessment and Plan: Patient met sepsis criteria with fever (Tmax 102.7) and leukocytosis. Source of infection likely pneumonia. He is afebrile today. Leukocytosis is improving. Blood cultures pending, preliminary with no growth Initiated on IV antibiotics, see below Antipyretics for fever Monitor vital signs, labs, intake and output (2) Pneumonia: Code(s): J18.9 - Pneumonia, unspecified organism Status: Acute Assessment and Plan: Patient with new onset fever and hypoxia down to 88% on room air on 04/30. Currently requiring 4 L per nasal cannula. He had new onset upper airway gurgling and with his altered mental status, this was concerning for aspiration. Continue Unasyn given concerns for aspiration Also started on azithromycin for full coverage of CAP. Sputum culture ordered if patient is able to provide specimen Influenza negative. COVID negative, isolation precautions discontinued. Completed Pfizer vaccination in October 2020. Supportive care to include bronchodilators, expectorants, antipyretics, incentive spirometry, Cornet for secretions Supplemental O2 as needed with goal saturation 90% or above. Titrate to goal. He is maintaining O2 sats >95%, therefore O2 should be weaned. Bedside swallow study performed 05/01 without evidence of aspiration but with recommendations for minced and moist diet due to fatigue. He may benefit from MBS, and I have left a message with ST to discuss this. Aspiration precautions implemented (3) Altered mental status: Code(s): R41.82 - Altered mental status, unspecified Status: Acute Assessment and Plan: Presented with increased confusion and dizziness. Initially concerning for stroke, however no acute findings on imaging. May be related to acute infectious process. Significant improvement in mental status today, A&Ox4. Head CT with no acute findings Brain MRI with no acute findings and evidence of old bilateral lacunar infarcts and chronic age-related findings notes that for several months he has had worsening memory and she has been concerned about him having dementia. Ammonia and folate within normal limits, TSH slightly elevated, B12 low and will be supplemented. Unlikely to be related to hypercalcemia given very mild elevation. Additional electrolytes are stable. Monitor mental status closely Consider Neurology evaluation if no improvement with treatment of infection (4) Vertigo: Code(s): R42 - Dizziness and giddiness Status: Acute Assessment and Plan: Presented with complaints of dizziness that has resolved. No evidence of orthostasis from supine to sitting position; full orthostatics not able to be performed yesterday. Attempt to obtain orthostatics again today. Continue with meclizine prn Fall precautions (5) Hypercalcemia: Code(s): E83.52 - Hypercalcemia Status: Acute Assessment and Plan: Review of prior labs demonstrates this to be a chronic issue ongoing for >1 year. Calcium is 11.6 today, improved with IV fluid rehydration. Continue to monitor calcium levels daily Intact PTH is elevated. He may benefit from parathyroid scan as an outpatient. Will discuss with his PCP. Additional workup including ionized calcium levels, urine calcium, protein electrophoresis pending (6) Visual hallucination: Code(s): R44.1 - Visual hallucinations Status: Acute Assessment and Plan: reported he was seeing grass and ribbon on their carpet in their home. Denies auditory or visual hallucinations today. May be related to acute illness vs dementia. Continue with plan as above (7) Hypertensive urgency: Code(s): I16.0 - Hypertensive urgency Status: Acute Assessment and Plan: Blood pressure had been elevated a
[2021-05-02] MEDS: FLUTICASONE/UMECLIDIN/VILANTER 100-62.5-25 MCG ELLIPTA 1 PUFF INHALATION (09:04)
[2021-05-02] MEDS: MAGNESIUM OXIDE 400 MG TABLET PO (09:19)
[2021-05-02] MEDS: PANTOPRAZOLE 40 MG TABLET PO ×2 (09:19→17:15)
[2021-05-02] MEDS: GABAPENTIN 400 MG CAPSULE PO ×4 (09:19→20:49)
[2021-05-02] MEDS: METOPROLOL SUCCINATE EXT REL 25 MG TABCR PO (09:20)
[2021-05-02] MEDS: ATORVASTATIN 40 MG TABLET PO (09:20)
[2021-05-02] MEDS: ASPIRIN 81 MG ENTERIC TABLET PO (09:20)
[2021-05-02] MEDS: guaiFENesin 12 HR 600 MG TABCR PO ×2 (11:09→20:49)
[2021-05-02] MEDS: lisinopriL 20 MG TABLET PO (12:44)
[2021-05-02] MEDS: ALBUTEROL SULFATE NEB 2.5 MG/0.5 ML INH INHALATION ×2 (13:06→19:57)
--- NOTE | 2021-05-02 14:17 | PC.NURSE ---
to MBS per w/c
--- NOTE | 2021-05-02 15:15 | PC.NURSE ---
On 05/02/21, the student, PSYCHIATRIC nursing education specialist took vital signs, provided care and completed [employer] documentation on this patient. I have reviewed the student's documentation and agree with the findings.
--- NOTE | 2021-05-02 17:14 | PCSTNOTE ---
Please refer to the Modified Barium Swallow Evaluation in the EMR.
[2021-05-02] MEDS: TAMSULOSIN HCL 0.4 MG CAPSULE PO (20:49)
[2021-05-03] VITALS (19 sets, daily range): BP systolic 140–164; BP diastolic 52–73; PULSE 76–94; RESP 16–24; TEMP 36.5–36.9; O2SAT 92–98
[2021-05-03] MEDS: AMPICILLIN SULB 3 GM/NS 100 ML 3 GM/100 ML VIAL IVPB ×2 (00:05→05:29)
[2021-05-03] MEDS: ALBUTEROL SULFATE NEB 2.5 MG/0.5 ML INH INHALATION ×4 (01:55→20:52)
[2021-05-03] MEDS: LORazepam INJ (*CRX) 2 MG/ML VIAL 0.5 MG IV PUSH ×2 (03:09→16:18)
[2021-05-03 06:26] LABS: Hematocrit 39.1 % (42.0-52.0); Hemoglobin 12.2 g/dL (14.0-18.0); Mean Corpuscular HGB Conc 31.2 g/dl (32-36); Mean Corpuscular Hemoglobin 28.7 pg (26-34); Mean Platelet Volume 9.5 fl (7.4-10.4); Platelet Count Result 221 k/mm3 (150-375); Red Blood Count 4.25 M/mm3 (4.6-6.20); Red Cell Distribution Width 17.3 % (11.5-14.5); White Blood Count 8.4 K/mm3 (4.5-10.0)
[2021-05-03 06:59] LABS: Anion Gap 12 mmol/L (8-16); Blood Urea Nitrogen 39 mg/dL (9-20); Calcium 11.8 mg/dL (8.4-10.2); Carbon Dioxide 22 mmol/L (22-30); Chloride 105 mmol/L (98-107); Estimated CRCL calculation 34 ml/min; Estimated Glomerular Filt Rate 37; Glucose 102 mg/dL (65-110); Potassium 4.2 mmol/L (3.4-5.0); Sodium 139 mmol/L (137-145)
--- NOTE | 2021-05-03 08:19 | P.PNIM_ITS ---
Progress Note: A&P Assessment and Plan (1) Sepsis: Code(s): A41.9 - Sepsis, unspecified organism Status: Acute Assessment and Plan: Patient met sepsis criteria with fever (Tmax 102.7) and leukocytosis. Source of infection likely pneumonia. ceftriaxone & azx lactate pending IVF LR at 100/hr fever & pain prn meds as ordered blood cultures and urine cultures (2) Dysphagia: Code(s): R13.10 - Dysphagia, unspecified Status: Acute (3) Vertigo: Code(s): R42 - Dizziness and giddiness Status: Acute Assessment and Plan: Presented with complaints of dizziness that has resolved. * No evidence of orthostasis from supine to sitting position; full orthostatics not able to be performed yesterday. Attempt to obtain orthostatics again today. * Continue with meclizine prn * Fall precautions (4) Altered mental status: Code(s): R41.82 - Altered mental status, unspecified Status: Acute Assessment and Plan: Presented with increased confusion and dizziness. Initially concerning for stroke, however no acute findings on imaging. May be related to acute infectious process. Significant improvement in mental status today, A&Ox4. * Head CT with no acute findings * Brain MRI with no acute findings and evidence of old bilateral lacunar infarcts and chronic age-related findings * notes that for several months he has had worsening memory and she has been concerned about him having dementia. * Ammonia and folate within normal limits, TSH slightly elevated, B12 low and will be supplemented. Unlikely to be related to hypercalcemia given very mild elevation. Additional electrolytes are stable. * Monitor mental status closely * Consider Neurology evaluation if no improvement with treatment of infection (5) Hypercalcemia: Code(s): E83.52 - Hypercalcemia Status: Acute Assessment and Plan: Review of prior labs demonstrates this to be a chronic issue ongoing for >1 yea r. Calcium is 11.6 today, improved with IV fluid rehydration. * Continue to monitor calcium levels daily * Intact PTH is elevated. He may benefit from parathyroid scan as an outpatient. Will discuss with his PCP. * Additional workup including ionized calcium levels, urine calcium, protein electrophoresis pending (6) Visual hallucination: Code(s): R44.1 - Visual hallucinations Status: Acute Assessment and Plan: reported he was seeing grass and ribbon on their carpet in their home. Denies auditory or visual hallucinations today. * May be related to acute illness vs dementia. * Continue with plan as above (7) Hypertensive urgency: Code(s): I16.0 - Hypertensive urgency Status: Acute Assessment and Plan: Blood pressure had been elevated above target, with systolic BP >200. I suspect this was related to missing his antihypertensives prior to admission as well as IV fluid rehydration contributing to BP elevation. Blood pressure has improved at appropriate rate with last BP 148/60 * Continue lisinopril at increased dose 20 mg daily. Continue metoprolol succinate 25 mg daily. * IV hydralazine q8h prn systolic BP >170 or diastolic BP >100 (8) Carotid artery disease: Code(s): I73.9 - Peripheral vascular disease, unspecified Status: Acute Assessment and Plan: Established with vascular surgeon at [facility] [place], last appointment was reported to have 75% occlusion. Carotid endarterectomy has been discussed but no plans to proceed with th
[2021-05-03 08:33] LABS: Ionized Calcium 6.8 mg/dL (4.8-5.6)
[2021-05-03] MEDS: FLUTICASONE/UMECLIDIN/VILANTER 100-62.5-25 MCG ELLIPTA 1 PUFF INHALATION (08:51)
[2021-05-03 09:13] LABS: Lactic Acid Reflex 1.1 mmol/L (0.7-2.1)
[2021-05-03] MEDS: guaiFENesin 12 HR 600 MG TABCR PO ×2 (09:40→21:30)
[2021-05-03] MEDS: GABAPENTIN 400 MG CAPSULE PO ×4 (09:40→21:30)
[2021-05-03] MEDS: ATORVASTATIN 40 MG TABLET PO (09:41)
[2021-05-03] MEDS: CYANOCOBALAMIN 1,000 MCG TABLET 1000 MCG PO (09:41)
[2021-05-03] MEDS: lisinopriL 20 MG TABLET PO (09:41)
[2021-05-03] MEDS: ASPIRIN 81 MG ENTERIC TABLET PO (09:41)
[2021-05-03] MEDS: MAGNESIUM OXIDE 400 MG TABLET PO (09:41)
[2021-05-03] MEDS: METOPROLOL SUCCINATE EXT REL 25 MG TABCR PO (09:42)
[2021-05-03] MEDS: PANTOPRAZOLE 40 MG TABLET PO ×2 (09:42→16:20)
[2021-05-03] MEDS: LACTATED RINGERS 1,000 ML 100 ML IV CONT (11:28)
[2021-05-03 12:07] LABS: Angiotensin Converting Enzyme 9.3 U/L (9-67)
[2021-05-03 14:21] LABS: Calcium/Creatinine Ratio, Ur 157 mg/g creat (10-240); Urine Calcium, Random 14.4 mg/dL (***); Urine Creatinine, Random 92 mg/dL (20-320)
--- NOTE | 2021-05-03 15:18 | PCOTNOTE ---
Attempted to see patient this pm, however patient presented with increased confusion and hallucinating. Pt unable to participate in functional therapy at this time.
[2021-05-03] MEDS: TAMSULOSIN HCL 0.4 MG CAPSULE PO (21:30)
[2021-05-04] VITALS (19 sets, daily range): BP systolic 128–163; BP diastolic 46–77; PULSE 64–88; RESP 16–20; TEMP 36.4–36.6; O2SAT 90–98
[2021-05-04] MEDS: LACTATED RINGERS 1,000 ML 100 ML IV CONT ×2 (02:13→14:18)
[2021-05-04] MEDS: ALBUTEROL SULFATE NEB 2.5 MG/0.5 ML INH INHALATION ×3 (02:17→14:40)
[2021-05-04 05:44] LABS: Alpha 1 Globulin 0.3 g/dL (0.2-0.3); Alpha 2 Globulin 0.8 g/dL (0.5-0.9); Beta 1 Globulin 0.5 g/dL (0.4-0.6); Protein, Total 6.9 g/dL (6.1-8.1)
[2021-05-04] MEDS: LEVOTHYROXINE SODIUM 150 MCG TABLET PO (05:50)
[2021-05-04 07:47] LABS: Basophils Percent Auto 0.5 % (0.2-1.2); Eosinophils Absolute Auto 0.6 K/mm3 (0-0.3); Eosinophils Percent Auto 9.7 % (0-4.4); Hematocrit 37.3 % (42.0-52.0); Hemoglobin 11.4 g/dL (14.0-18.0); Immature Granulocyte Absolute 0.02 K/mm3 (0.00-0.031); Immature Granulocyte Percent A 0.3 % (0-0.5); Lymphocytes Absolute Auto 1.17 K/mm3 (0.9-3.2); Lymphocytes Percent Auto 20.2 % (18.3-44.2); Mean Corpuscular HGB Conc 30.6 g/dl (32-36); Mean Corpuscular Hemoglobin 28.4 pg (26-34); Mean Corpuscular Volume 92.8 fl (80-100); Mean Platelet Volume 9.5 fl (7.4-10.4); Monocytes Absolute Auto 0.7 K/mm3 (0.1-0.6); Monocytes Percent Auto 11.9 % (2.6-8.5); Neutrophils Absolute Auto 3.3 K/mm3 (1.3-6.7); Neutrophils Percent Auto 57.4 % (45.5-73.1); Platelet Count Result 237 k/mm3 (150-375); Red Blood Count 4.02 M/mm3 (4.6-6.20); Red Cell Distribution Width 17.2 % (11.5-14.5); White Blood Count 5.8 K/mm3 (4.5-10.0)
[2021-05-04] MEDS: FLUTICASONE/UMECLIDIN/VILANTER 100-62.5-25 MCG ELLIPTA 1 PUFF INHALATION (08:10)
--- NOTE | 2021-05-04 08:39 | PM.IMPN ---
Progress Note: A&P Assessment and Plan (1) Sepsis: Code(s): A41.9 - Sepsis, unspecified organism Status: Acute Assessment and Plan: Patient met sepsis criteria with fever (Tmax 102.7) and leukocytosis. Source of infection likely pneumonia. ceftriaxone & azx lactate pending IVF LR at 100/hr fever & pain prn meds as ordered blood cultures and urine cultures (2) Dysphagia: Code(s): R13.10 - Dysphagia, unspecified Status: Acute (3) Vertigo: Code(s): R42 - Dizziness and giddiness Status: Acute Assessment and Plan: Presented with complaints of dizziness that has resolved. No evidence of orthostasis from supine to sitting position; full orthostatics not able to be performed yesterday. Attempt to obtain orthostatics again today. Continue with meclizine prn Fall precautions (4) Altered mental status: Code(s): R41.82 - Altered mental status, unspecified Status: Acute Assessment and Plan: Presented with increased confusion and dizziness. Initially concerning for stroke, however no acute findings on imaging. May be related to acute infectious process. Significant improvement in mental status today, A&Ox4. Head CT with no acute findings Brain MRI with no acute findings and evidence of old bilateral lacunar infarcts and chronic age-related findings notes that for several months he has had worsening memory and she has been concerned about him having dementia. Ammonia and folate within normal limits, TSH slightly elevated, B12 low and will be supplemented. Unlikely to be related to hypercalcemia given very mild elevation. Additional electrolytes are stable. Monitor mental status closely Consider Neurology evaluation if no improvement with treatment of infection (5) Hypercalcemia: Code(s): E83.52 - Hypercalcemia Status: Acute Assessment and Plan: Review of prior labs demonstrates this to be a chronic issue ongoing for >1 year. Calcium is 11.6 today, improved with IV fluid rehydration. Continue to monitor calcium levels daily Intact PTH is elevated. He may benefit from parathyroid scan as an outpatient. Will discuss with his PCP. Additional workup including ionized calcium levels, urine calcium, protein electrophoresis pending (6) Visual hallucination: Code(s): R44.1 - Visual hallucinations Status: Acute Assessment and Plan: reported he was seeing grass and ribbon on their carpet in their home. Denies auditory or visual hallucinations today. May be related to acute illness vs dementia. Continue with plan as above (7) Hypertensive urgency: Code(s): I16.0 - Hypertensive urgency Status: Acute Assessment and Plan: Blood pressure had been elevated above target, with systolic BP >200. I suspect this was related to missing his antihypertensives prior to admission as well as IV fluid rehydration contributing to BP elevation. Blood pressure has improved at appropriate rate with last BP 148/60 Continue lisinopril at increased dose 20 mg daily. Continue metoprolol succinate 25 mg daily. IV hydralazine q8h prn systolic BP >170 or diastolic BP >100 (8) Carotid artery disease: Code(s): I73.9 - Peripheral vascular disease, unspecified Status: Acute Assessment and Plan: Established with vascular surgeon at [facility], last appointment was reported to have 75% occlusion. Carotid endarterectomy has been discussed but no plans to proceed with this at this time given he is at less than near occlusion Carotid Doppler performed with <50% stenosis in the right internal carotid and >70% stenosis of the left carotid but less than near occlusion He will need to follow-up with his vascular surgeon as an outpatient (9) Frequent falls: Code(s): R29.6 - Repeated falls Status: Acute Assessment and Plan: Patient's reports he is unsteady and has frequ
--- NOTE | 2021-05-04 08:56 | PCOTNOTE ---
Pt. treatment frequency decreased to 2-3x/wk, not appropriate for .5-7x/wk due to decreased tolerance and cognitive deficits
[2021-05-04 08:57] LABS: Alanine Aminotransferase 19 U/L (4-50); Albumin Level 3.7 g/dL (3.5-5.1); Alkaline Phosphatase 72 U/L (38-126); Anion Gap 6 mmol/L (8-16); Aspartate Amino Transferase 34 U/L (17-59); Bilirubin,Total 0.4 mg/dL (0.2-1.3); Blood Urea Nitrogen 29 mg/dL (9-20); Calcium 11.4 mg/dL (8.4-10.2); Carbon Dioxide 27 mmol/L (22-30); Chloride 108 mmol/L (98-107); Estimated CRCL calculation 41 ml/min; Estimated Glomerular Filt Rate 46; Glucose 99 mg/dL (65-110); Magnesium 1.7 mg/dL (1.6-2.3); Potassium 4.1 mmol/L (3.4-5.0); Sodium 141 mmol/L (137-145)
[2021-05-04] MEDS: lisinopriL 20 MG TABLET PO (10:02)
[2021-05-04] MEDS: ASPIRIN 81 MG ENTERIC TABLET PO (10:02)
[2021-05-04] MEDS: GABAPENTIN 400 MG CAPSULE PO ×4 (10:02→22:30)
[2021-05-04] MEDS: guaiFENesin 12 HR 600 MG TABCR PO ×2 (10:02→22:30)
[2021-05-04] MEDS: CYANOCOBALAMIN 1,000 MCG TABLET 1000 MCG PO (10:02)
[2021-05-04] MEDS: PANTOPRAZOLE 40 MG TABLET PO ×2 (10:03→17:05)
[2021-05-04] MEDS: MAGNESIUM OXIDE 400 MG TABLET PO (10:03)
[2021-05-04] MEDS: METOPROLOL SUCCINATE EXT REL 25 MG TABCR PO (10:03)
[2021-05-04] MEDS: ATORVASTATIN 40 MG TABLET PO (10:03)
[2021-05-04] MEDS: LORazepam INJ (*CRX) 2 MG/ML VIAL 0.5 MG IV PUSH (17:05)
[2021-05-04] MEDS: TAMSULOSIN HCL 0.4 MG CAPSULE PO (22:30)
[2021-05-05] VITALS (23 sets, daily range): BP systolic 110–174; BP diastolic 55–93; PULSE 67–82; RESP 16–18; TEMP 36.5–36.7; O2SAT 92–96
[2021-05-05] MEDS: ALBUTEROL SULFATE NEB 2.5 MG/0.5 ML INH INHALATION ×4 (02:02→19:50)
[2021-05-05 04:51] LABS: Creatinine, Random Urine 92 mg/dL (20-320); Total Protein/Creatinine Ratio 65 mg/g creat (22-128)
[2021-05-05] MEDS: LEVOTHYROXINE SODIUM 150 MCG TABLET PO (05:19)
[2021-05-05 06:23] LABS: Basophils Absolute Auto 0.1 K/mm3 (0.0-0.1); Basophils Percent Auto 0.8 % (0.2-1.2); Eosinophils Absolute Auto 0.5 K/mm3 (0-0.3); Eosinophils Percent Auto 7.9 % (0-4.4); Hematocrit 38.5 % (42.0-52.0); Hemoglobin 11.9 g/dL (14.0-18.0); Immature Granulocyte Absolute 0.04 K/mm3 (0.00-0.031); Immature Granulocyte Percent A 0.7 % (0-0.5); Lymphocytes Absolute Auto 1.68 K/mm3 (0.9-3.2); Lymphocytes Percent Auto 27.6 % (18.3-44.2); Mean Corpuscular HGB Conc 30.9 g/dl (32-36); Mean Corpuscular Hemoglobin 28.3 pg (26-34); Mean Corpuscular Volume 91.7 fl (80-100); Monocytes Absolute Auto 0.6 K/mm3 (0.1-0.6); Monocytes Percent Auto 10.5 % (2.6-8.5); Neutrophils Absolute Auto 3.2 K/mm3 (1.3-6.7); Neutrophils Percent Auto 52.5 % (45.5-73.1); Platelet Count Result 248 k/mm3 (150-375); Red Cell Distribution Width 16.9 % (11.5-14.5); White Blood Count 6.1 K/mm3 (4.5-10.0)
[2021-05-05 06:37] LABS: Alanine Aminotransferase 24 U/L (4-50); Albumin Level 3.8 g/dL (3.5-5.1); Alkaline Phosphatase 74 U/L (38-126); Anion Gap 6 mmol/L (8-16); Aspartate Amino Transferase 32 U/L (17-59); Bilirubin,Total 0.3 mg/dL (0.2-1.3); Blood Urea Nitrogen 23 mg/dL (9-20); Calcium 11.8 mg/dL (8.4-10.2); Carbon Dioxide 30 mmol/L (22-30); Chloride 104 mmol/L (98-107); Estimated CRCL calculation 44 ml/min; Estimated Glomerular Filt Rate 49; Glucose 104 mg/dL (65-110); Magnesium 1.5 mg/dL (1.6-2.3); Phosphorus 2.9 mg/dL (2.5-4.5); Potassium 4.1 mmol/L (3.4-5.0); Sodium 140 mmol/L (137-145)
[2021-05-05] MEDS: FLUTICASONE/UMECLIDIN/VILANTER 100-62.5-25 MCG ELLIPTA 1 PUFF INHALATION (07:50)
[2021-05-05] MEDS: LACTATED RINGERS 1,000 ML 100 ML IV CONT ×2 (09:43→21:19)
[2021-05-05] MEDS: ASPIRIN 81 MG ENTERIC TABLET PO (09:49)
[2021-05-05] MEDS: MAGNESIUM OXIDE 400 MG TABLET PO (09:49)
[2021-05-05] MEDS: METOPROLOL SUCCINATE EXT REL 25 MG TABCR PO (09:49)
[2021-05-05] MEDS: guaiFENesin 12 HR 600 MG TABCR PO ×2 (09:50→20:53)
[2021-05-05] MEDS: ATORVASTATIN 40 MG TABLET PO (09:50)
[2021-05-05] MEDS: GABAPENTIN 400 MG CAPSULE PO ×4 (09:50→20:52)
[2021-05-05] MEDS: lisinopriL 20 MG TABLET PO (09:50)
[2021-05-05] MEDS: CYANOCOBALAMIN 1,000 MCG TABLET 1000 MCG PO (09:51)
[2021-05-05] MEDS: PANTOPRAZOLE 40 MG TABLET PO ×2 (09:51→17:18)
--- NOTE | 2021-05-05 11:10 | PC.NURSE ---
Pt's son, Edward, called for an update. During the conversation, Edward stated that he and/or his mother, pt's , could be called to come in and manage pt; Edward specifically stated, you nurses have too much to do and don't need to be dealing with someone who is out of control. I had Edward added to the contacts list per his instructions.
--- NOTE | 2021-05-05 14:42 | PC.NURSE ---
orthostatic blood pressure/vitals taken at approximately 1430; hospitalist, Dr. Choudhary, was called with the results at 1440; no new orders, will continue to monitor supine: 77, 16, 95, 150/71 sittin, 16, 96, 150/56 standin, 18, 94, 110/72
[2021-05-05] MEDS: TAMSULOSIN HCL 0.4 MG CAPSULE PO (20:53)
[2021-05-06] VITALS (15 sets, daily range): BP systolic 119–167; BP diastolic 50–94; PULSE 65–84; RESP 16–18; TEMP 36.3–36.6; O2SAT 92–93
[2021-05-06] MEDS: ALBUTEROL SULFATE NEB 2.5 MG/0.5 ML INH INHALATION ×3 (02:02→13:33)
[2021-05-06] MEDS: LEVOTHYROXINE SODIUM 150 MCG TABLET PO (06:02)
[2021-05-06] MEDS: LACTATED RINGERS 1,000 ML 100 ML IV CONT (06:03)
[2021-05-06 06:23] LABS: Basophils Percent Auto 0.5 % (0.2-1.2); Eosinophils Absolute Auto 0.5 K/mm3 (0-0.3); Eosinophils Percent Auto 8.4 % (0-4.4); Hematocrit 37.1 % (42.0-52.0); Hemoglobin 11.5 g/dL (14.0-18.0); Immature Granulocyte Absolute 0.07 K/mm3 (0.00-0.031); Immature Granulocyte Percent A 1.2 % (0-0.5); Lymphocytes Absolute Auto 1.78 K/mm3 (0.9-3.2); Lymphocytes Percent Auto 31.7 % (18.3-44.2); Mean Corpuscular Volume 90.5 fl (80-100); Mean Platelet Volume 8.9 fl (7.4-10.4); Monocytes Absolute Auto 0.6 K/mm3 (0.1-0.6); Monocytes Percent Auto 9.8 % (2.6-8.5); Neutrophils Absolute Auto 2.7 K/mm3 (1.3-6.7); Neutrophils Percent Auto 48.4 % (45.5-73.1); Platelet Count Result 230 k/mm3 (150-375); Red Cell Distribution Width 16.7 % (11.5-14.5); White Blood Count 5.6 K/mm3 (4.5-10.0)
[2021-05-06 06:47] LABS: Alanine Aminotransferase 24 U/L (4-50); Albumin Level 3.6 g/dL (3.5-5.1); Alkaline Phosphatase 72 U/L (38-126); Anion Gap 5 mmol/L (8-16); Aspartate Amino Transferase 30 U/L (17-59); Bilirubin,Total 0.2 mg/dL (0.2-1.3); Blood Urea Nitrogen 16 mg/dL (9-20); Calcium 11.6 mg/dL (8.4-10.2); Carbon Dioxide 29 mmol/L (22-30); Chloride 105 mmol/L (98-107); Estimated CRCL calculation 44 ml/min; Estimated Glomerular Filt Rate 49; Glucose 96 mg/dL (65-110); Magnesium 1.4 mg/dL (1.6-2.3); Potassium 3.8 mmol/L (3.4-5.0); Sodium 139 mmol/L (137-145)
[2021-05-06] MEDS: FLUTICASONE/UMECLIDIN/VILANTER 100-62.5-25 MCG ELLIPTA 1 PUFF INHALATION (08:08)
[2021-05-06] MEDS: ATORVASTATIN 40 MG TABLET PO (09:38)
[2021-05-06] MEDS: MAGNESIUM SULFATE 3GM/D5W100ML 3 GM/100 ML BAG IVPB (09:38)
[2021-05-06] MEDS: ASPIRIN 81 MG ENTERIC TABLET PO (09:38)
[2021-05-06] MEDS: GABAPENTIN 400 MG CAPSULE PO ×2 (09:39→12:32)
[2021-05-06] MEDS: PANTOPRAZOLE 40 MG TABLET PO (09:39)
[2021-05-06] MEDS: CYANOCOBALAMIN 1,000 MCG TABLET 1000 MCG PO (09:39)
[2021-05-06] MEDS: MAGNESIUM OXIDE 400 MG TABLET PO (09:39)
[2021-05-06] MEDS: METOPROLOL SUCCINATE EXT REL 25 MG TABCR PO (09:39)
[2021-05-06] MEDS: guaiFENesin 12 HR 600 MG TABCR PO (09:39)
[2021-05-06] MEDS: lisinopriL 20 MG TABLET PO (09:39)
--- NOTE | 2021-05-06 13:16 | PCOTNOTE ---
Patient out of room for MBS, will attempt again to see for OT later today.
--- NOTE | 2021-05-06 14:13 | PCSTNOTE ---
Please refer to the Modified Barium Swallow Evaluation in the EMR.
--- NOTE | 2021-05-06 14:34 | P.DS_ITS ---
DS: Admitting Diagnosis Discharge Date 05/06/2021 Admitting Diagnosis Vertigo DS: Discharge Diagnosis Discharge Diagnosis (1) Sepsis: Code(s): A41.9 - Sepsis, unspecified organism Status: Acute Assessment and Plan: Patient met sepsis criteria with fever (Tmax 102.7) and leukocytosis. Source of infection likely pneumonia. * Treated with IV antibiotics as described below * Lactic acid 1.1 * Sepsis resolved with treatment * Blood cultures collected 04/30 negative. Blood cultures collected again on 05/03 negative to date, final cultures will be monitored. (2) Pneumonia: Code(s): J18.9 - Pneumonia, unspecified organism Status: Acute Assessment and Plan: Patient with new onset fever and hypoxia down to 88% on room air on 04/30. Required up to 4 L supplemental O2 per nasal cannula. He had new onset upper airway gurgling and with his altered mental status, this was concerning for aspiration. * Initiated on IV Unasyn and azithromycin due to concerns for aspiration coverage for community-acquired pneumonia. Transitioned to IV Rocephin and azithromycin by following provider. * Discharged home on Augmentin to complete a 7 day course of therapy. * Sputum culture ordered, not able to be collected. * Influenza negative. COVID negative. Isolation precautions were discontinued. The patient completed Pfizer vaccination October 2020. * Supportive care provided including bronchodilators, expectorants, antipyretics, incentive spirometry, and Atilio. * He was weaned from supplemental oxygen and maintain adequate oxygenation on ro om air for many days. (3) Dysphagia: Code(s): R13.10 - Dysphagia, unspecified Status: Acute Assessment and Plan: Concerns for aspiration as described above * Bedside swallow study performed on 05/01 without evidence of aspiration but with recommendations for minced moist diet due to fatigue. * MBS performed on 05/02 with evidence of silent aspiration and recommendations for moderately thickened liquids with pureed diet. * Aspiration precautions implemented. * MBS was repeated on 05/06/2021 with recommendations to remain on moderately thickened liquids and advanced to soft and bite size diet. * Outpatient speech therapy to be arranged per home health. Discussed with ELECTRICAL ELECTRONICS ENGINEER and patient has good prognosis for improvement with therapy. (4) Vertigo: Code(s): R42 - Dizziness and giddiness Status: Acute Assessment and Plan: Presented with complaints of dizziness that resolved entirely * No evidence of orthostasis * Medically available p.r.n.. Patient did not need this. * Fall precautions discussed (5) Altered mental status: Code(s): R41.82 - Altered mental status, unspecified Status: Acute Assessment and Plan: Presented with increased confusion and dizziness. Initially concerning for stroke, however no acute findings on imaging. Likely related to acute infectious process. Mental status improved significantly with resolution of i nfection. He was A&O x4. * Head CT with no acute findings * Brain MRI with no acute findings and evidence of old bilateral lacunar infarcts and chronic age-related findings * notes that for several months he has had worsening memory and she has been concerned about him having dementia. He should follow-up with his PCP as an outpatient for further monitoring. * Ammonia and folate within normal limits, TSH slightly elevated, B12 low and supplementation was initiated. Unlikely to be related to hypercalcemia given beni
--- NOTE | 2021-05-06 14:34 | PM.DS ---
DS: Admitting Diagnosis Discharge Date 05/06/2021 Admitting Diagnosis Vertigo DS: Discharge Diagnosis Discharge Diagnosis (1) Sepsis: Code(s): A41.9 - Sepsis, unspecified organism Status: Acute Assessment and Plan: Patient met sepsis criteria with fever (Tmax 102.7) and leukocytosis. Source of infection likely pneumonia. Treated with IV antibiotics as described below Lactic acid 1.1 Sepsis resolved with treatment Blood cultures collected 04/30 negative. Blood cultures collected again on 05/03 negative to date, final cultures will be monitored. (2) Pneumonia: Code(s): J18.9 - Pneumonia, unspecified organism Status: Acute Assessment and Plan: Patient with new onset fever and hypoxia down to 88% on room air on 04/30. Required up to 4 L supplemental O2 per nasal cannula. He had new onset upper airway gurgling and with his altered mental status, this was concerning for aspiration. Initiated on IV Unasyn and azithromycin due to concerns for aspiration coverage for community-acquired pneumonia. Transitioned to IV Rocephin and azithromycin by following provider. Discharged home on Augmentin to complete a 7 day course of therapy. Sputum culture ordered, not able to be collected. Influenza negative. COVID negative. Isolation precautions were discontinued. The patient completed Pfizer vaccination October 2020. Supportive care provided including bronchodilators, expectorants, antipyretics, incentive spirometry, and Atilio. He was weaned from supplemental oxygen and maintain adequate oxygenation on room air for many days. (3) Dysphagia: Code(s): R13.10 - Dysphagia, unspecified Status: Acute Assessment and Plan: Concerns for aspiration as described above Bedside swallow study performed on 05/01 without evidence of aspiration but with recommendations for minced moist diet due to fatigue. MBS performed on 05/02 with evidence of silent aspiration and recommendations for moderately thickened liquids with pureed diet. Aspiration precautions implemented. MBS was repeated on 05/06/2021 with recommendations to remain on moderately thickened liquids and advanced to soft and bite size diet. Outpatient speech therapy to be arranged per home health. Discussed with BUSINESS UNIT DIRECTOR and patient has good prognosis for improvement with therapy. (4) Vertigo: Code(s): R42 - Dizziness and giddiness Status: Acute Assessment and Plan: Presented with complaints of dizziness that resolved entirely No evidence of orthostasis Medically available p.r.n.. Patient did not need this. Fall precautions discussed (5) Altered mental status: Code(s): R41.82 - Altered mental status, unspecified Status: Acute Assessment and Plan: Presented with increased confusion and dizziness. Initially concerning for stroke, however no acute findings on imaging. Likely related to acute infectious process. Mental status improved significantly with resolution of infection. He was A&O x4. Head CT with no acute findings Brain MRI with no acute findings and evidence of old bilateral lacunar infarcts and chronic age-related findings notes that for several months he has had worsening memory and she has been concerned about him having dementia. He should follow-up with his PCP as an outpatient for further monitoring. Ammonia and folate within normal limits, TSH slightly elevated, B12 low and supplementation was initiated. Unlikely to be related to hypercalcemia given very mild elevation. Additional electrolytes remained stable. (6) Hypercalcemia: Code(s): E83.52 - Hypercalcemia Status: Acute Assessment and Plan: Review of prior labs demonstrates this to be a chronic issue ongoing for >1 year. Calcium was 12.5 at presentation. Calcium levels monitor closely throughout hospitalization Improved with IV fluids and then range subsequently from 11.4-11.8
--- NOTE | 2021-05-06 15:22 | PCOTNOTE ---
The OT treatment was unable to be completed this date. Will continue plan of care tomorrow, 05/07/21.
== END 2021-05-06 16:14 | disposition home health service (06) | DRG 871 ==
LOC: ANHED 16:51 → ANH3MEDSUR 19:42
PROVIDERS: Internal Medicine; Nurse Practitioner; Admitting Provider Internal Medicine; Emergency Provider Emergency Medicine; PCP Family Medicine; Visit Provider Physician Assistant
DX: A41.9 Sepsis, unspecified organism (principal); J18.9 Pneumonia, unspecified organism; G93.41 Metabolic encephalopathy; R13.10 Dysphagia, unspecified; Z20.822 Contact with and (suspected) exposure to COVID-19; R09.02 Hypoxemia; E83.52 Hypercalcemia; R44.1 Visual hallucinations; I16.0 Hypertensive urgency; I73.9 Peripheral vascular disease, unspecified; R29.6 Repeated falls; I25.10 Atherosclerotic heart disease of native coronary artery without angina pectoris; E03.9 Hypothyroidism, unspecified; N40.1 Benign prostatic hyperplasia with lower urinary tract symptoms; M47.896 Other spondylosis, lumbar region; I65.23 Occlusion and stenosis of bilateral carotid arteries; J44.9 Chronic obstructive pulmonary disease, unspecified; I10 Essential (primary) hypertension; E78.5 Hyperlipidemia, unspecified; Z86.73 Personal history of transient ischemic attack (TIA), and cerebral infarction without residual deficits; Z85.46 Personal history of malignant neoplasm of prostate; Z98.42 Cataract extraction status, left eye; Z98.41 Cataract extraction status, right eye; Z87.891 Personal history of nicotine dependence
CPT/HCPCS: 36415; 70450; 70551; 71045; 71046; 80048; 80053; 81003; 82140; 82164; 82306; 82310; 82330; 82570; 82607; 82746; 83605; 83615; 83735; 83970; 84100; 84155; 84156; 84165; 84166; 84439; 84443; 85025; 85027; 86140; 87040; 87804; 92526; 92610; 92611; 93005; 93306; 93880; 94640; 94667; 96361; 96365; 96366; 96367; 96368; 96375; 96376; 97110; 97116; 97161; 97165; 97530; 99285; A9270; C9803; G0378; J0131; J0295; J0360; J0456; J0696; J2060; J3475; J7030; J7120; U0003; U0005

== ENCOUNTER 2021-05-15 12:32 | Outpatient (NON) | payer MEDICARE, SELFPAY ==
[2021-05-15 13:15] LABS: Calcium 11.5 mg/dL (8.4-10.2)
== END 2021-05-15 12:33 | disposition home or self-care (01) ==
PROVIDERS: PCP Family Medicine; Visit Provider Family Medicine
DX: J44.0 Chronic obstructive pulmonary disease with (acute) lower respiratory infection (principal); J18.9 Pneumonia, unspecified organism; A41.9 Sepsis, unspecified organism; E83.52 Hypercalcemia
CPT/HCPCS: 82310; 83735

== ENCOUNTER 2021-06-25 12:30 | Outpatient (CLI) | payer MEDICARE, SELFPAY ==
--- NOTE | ~2021-06-25 | NM_ITS ---
EXAMINATION: NM parathyroid w imaging DATE: 06/25/2021 15:06 INDICATION: Hypercalcemia. TECHNIQUE: 15 mCi Tc99m sestamibi was administered intravenously. Anterior images of the neck were ob tained immediately and at 2 hours. SPECT images of the neck were obtained. COMPARISON: Parathyroid scintigraphy 09/04/2017 FINDINGS: There is no focus of persistent activity in the area of the thyroid or mediastinum to sugge st parathyroid adenoma. Symmetric activity in the area of the thyroid bilaterally superiorly and infe riorly on delayed images may be seen with parathyroid hyperplasia. IMPRESSION: 1. No specific evidence of a parathyroid adenoma. Reviewed, dictated and finalized at location A. NS PICKER
== END 2021-06-25 12:31 | disposition home or self-care (01) ==
LOC: ANHIMG 12:34
PROVIDERS: PCP Family Medicine; Visit Provider Family Medicine
DX: E83.52 Hypercalcemia (principal)
CPT/HCPCS: 78070; A9500

== ENCOUNTER 2021-07-02 08:30 | Outpatient (CLI) | payer MEDICARE, SELFPAY ==
--- NOTE | ~2021-07-02 | CT_ITS ---
EXAMINATION: CTA brain carotid DATE: 07/02/2021 09:23 INDICATION: Transient ischemic attack. Bilateral carotid artery stenosis. TECHNIQUE: Computed tomographic angiography (CTA) of the head was performed without and with 100 mL O mnipaque-350 intravenous contrast. CTA of the neck was performed with intravenous contrast. Automated exposure control and iterative reconstruction technique were employed. The dose-length product was 1 922.88 mGy-cm. Maximum intensity projection and volume rendered 3D-reconstructions were created by nena schilling technologist on a separate workstation. COMPARISON: Head CT 04/29/2021, brain MRI 04/30/2021, CTA 10/27/2014 FINDINGS: HEAD CTA: There are scattered areas of low attenuation in the cerebral white matter. There is no intr acranial hemorrhage, acute infarction, or abnormal intracranial mass lesion. The ventricles are misti l in size. There are likely changes of ocular lens replacement surgeries. There is mild mucosal thick ening in the paranasal sinuses. The mastoid air cells are normal. Left vertebral artery is dominant. There is mild stenosis of the vertebral body arteries. There is no significant stenosis of basilar ar cris or the posterior cerebral arteries. The posterior communicating arteries are normal. There is mi ld stenosis of the intracranial internal carotid arteries. There is no significant stenosis of the an terior or middle cerebral arteries. Anterior communicating artery is normal. There is no aneurysm. NECK CTA: There is mild emphysema. There is mild scarring at the lung apices. There are no pathologic ally enlarged lymph nodes. There is severe stenosis of right vertebral artery origin. There is modera te stenosis of proximal left vertebral artery. There is plaque in the proximal internal carotid arter ies. There is 22% stenosis of the proximal right internal carotid artery relative to normal distal ar cris lumen diameter (NASCET criteria). There is 45% stenosis of the proximal left internal carotid ar cris relative to normal distal artery lumen diameter. Distal left cervical internal carotid artery is smaller than the right secondary to normal variant chitina of [place] anatomy. There is moderate steno sis of the mid left common carotid artery. There is mild cervical spondylosis. IMPRESSION: 1. Stable moderate nonspecific cerebral white matter disease, which likely represents chronic small v essel ischemic disease. 2. No aneurysm or significant intracranial arterial stenosis. 3. 22% stenosis of the proximal right internal carotid artery relative to normal distal artery lumen diameter (NASCET criteria). 4. 45% stenosis of the proximal left internal carotid artery relative to normal distal artery lumen d iameter. 5. Moderate stenosis of the left common carotid artery. 6. Severe stenosis of right vertebral artery origin. Moderate stenosis of proximal left vertebral art nimo. Reviewed, dictated and finalized at location A. MER PURIFICATION OPERATOR IMPRESSION: 1. Stable moderate nonspecific cerebral white matter disease, which likely repr esents chronic small vessel ischemic disease. 2. No aneurysm or significant intracranial arterial stenosis. 3. 22% stenosis of the proximal right internal carotid artery relative to misti l distal artery lumen diameter (NASCET criteria). 4. 45% stenosis of the proximal left internal carotid artery relative to normal distal artery lumen diameter. 5. Moderate stenosis of the left common carotid artery. 6. Severe stenosis of right vertebral artery origin. Moderate stenosis of proxi mal left vertebral artery.
== END 2021-07-02 08:31 | disposition home or self-care (01) ==
PROVIDERS: PCP Family Medicine
DX: I65.23 Occlusion and stenosis of bilateral carotid arteries (principal); R93.0 Abnormal findings on diagnostic imaging of skull and head, not elsewhere classified
CPT/HCPCS: 70496; 70498; Q9967

== ENCOUNTER 2021-07-02 17:22 | Inpatient (IN) | payer MEDICARE, SELFPAY ==
--- NOTE | ~2021-07-02 | XR_ITS ---
EXAMINATION: XR barium swallow modified DATE: 07/05/2021 13:38 INDICATION: Cerebrovascular accident. TECHNIQUE: The patient was given barium-containing material of multiple consistencies to swallow by t aaron speech pathologist while I performed fluoroscopy. Fluoroscopy exposure time was 2.8 minutes. The n umber of fluoroscopy images saved to the PACS was 1. Dose-area product was 1.976 Gy-cm^2. FINDINGS: There is reduced laryngeal elevation, recently laryngeal adduction, reduced tongue base retraction, r educed pharyngeal squeeze, vallecular residue, piriform sinus residue, laryngeal penetration, and asp iration. IMPRESSION: 1. Laryngeal penetration and aspiration. 2. Please refer to the speech therapy report for recommendations. Reviewed, dictated and finalized at location A. R MAN
--- NOTE | ~2021-07-02 | MR_ITS ---
EXAMINATION: MR brain/brain stem wo con EXAM DATE: 07/04/2021 07:59 INDICATION: left leg weakness TECHNIQUE: Magnetic resonance imaging (MRI) of the brain/brain stem obtained without contrast. Yvette ruiz T1, axial diffusion, gradient echo (T2*), T1, T2, FLAIR sequences obtained. Comparison is made to prior examination from 04/30/2021. FINDINGS: There is interval development of small regions of increased T2 signal and diffusion weighte d signal in the right frontoparietal region medially, could be small acute or subacute infarctions. T here is moderate microangiopathy and cerebral atrophy. Dilated perivascular spaces. Bilateral catarac t surgery. Bilateral old basal ganglia lacunar infarctions. No extra-axial collections, brain mass, a cute intracranial hemorrhage or obstructive hydrocephalus. The orbits and soft tissues are unremarkab le. Flow voids are seen in the cerebral arteries on the T2 weighted sequences consistent with their e xpected patency. Small left maxillary sinus retention cyst. IMPRESSION: 1. Development of several small regions right frontoparietal signal abnormalities, likely acute or s ubacute infarction. 2. Chronic age-related intracranial findings. Reviewed, dictated and finalized at location B. GOODS WASHER IMPRESSION: 1. Development of several small regions right frontoparietal signal abnormalit ies, likely acute or subacute infarction. 2. Chronic age-related intracranial findings.
--- NOTE | ~2021-07-02 | XR_ITS ---
EXAMINATION: XR chest 1V portable EXAM DATE: 07/06/2021 09:24 INDICATION: SOB . TECHNIQUE: Portable AP frontal chest x-ray was obtained. Comparison is made to prior examination from 07/02/2021. FINDINGS: Development of bilateral ill-defined small to moderate amount of airspace disease, pneumoni a and/or edema. Please clinically correlate. Cardiomediastinal silhouette is normal. There is no pneu mothorax suspected. There are no pleural effusions. There are mild bony degenerative changes. IMPRESSION:Developing small to moderate amount of bilateral pneumonia or edema. Reviewed, dictated and finalized at location A. PROJECT MANAGER
--- NOTE | ~2021-07-02 | XR_ITS ---
EXAMINATION: XR chest 2V DATE: 07/02/2021 18:23 INDICATION: Weakness and dizziness TECHNIQUE: frontal and lateral views of the chest were obtained. COMPARISON: Chest radiograph dated 05/01/2021 FINDINGS: The lungs remain clear with no focal airspace opacities, pulmonary edema, pleural effusion or pneumot horax. The cardiomediastinal silhouette is normal. Widening of the right acromioclavicular joint with appearance suggesting prior distal right clavicle excision. IMPRESSION: 1. No acute cardiopulmonary disease. Reviewed, dictated and finalized at location A. Y FEED SALES CONSULTANT
--- NOTE | ~2021-07-02 | CT_ITS ---
EXAMINATION: CT brain wo con EXAM DATE: 07/05/2021 10:00 INDICATION: Stroke. TECHNIQUE: Spiral CT of the head was performed without contrast. Axial, coronal and sagittal images were reviewed. The dose-length product (DLP) for this examination was 605.33 mGy-cm. The exposure w as tailored according to patient size, and iterative reconstruction (ASIR) was used as additional dos e reduction technique. Comparison is made to prior examination from 07/02/2021. FINDINGS: There is no acute intraparenchymal hemorrhage. No evidence of intraparenchymal brain mass lesion. No evidence of acute infarction. Please note that initial head CT has limited sensitivity f or small or acute infarctions. Bilateral basal ganglia old lacunar infarctions. There is moderate p eriventricular and subcortical hypodensity, nonspecific but probably related to small vessel ischemic disease. There is prominence of the sulci and ventricles related to cerebral atrophy. There is i ntracranial carotid arteriosclerosis. There are no extra-axial collections. There is no mass effect or midline shift. Patient has had bilateral ocular lens surgery. Soft tissue is unremarkable. The visualized sinuses and mastoid air cells are well aerated. There is no significant interval change . IMPRESSION: 1. Chronic basal ganglia lacunar infarctions. 2. Chronic age related findings. Reviewed, dictated and finalized at location B. SETTER
--- NOTE | ~2021-07-02 | XR_ITS ---
EXAMINATION: XR foot LT min 3V DATE: 07/02/2021 21:21 INDICATION: Dorsal left foot pain post fall TECHNIQUE: Dorsoplantar, two oblique and lateral views of the left foot were obtained. COMPARISON: 12/16/2020 FINDINGS: Alignment is normal. No fracture. Mild osteoarthritis at the first metatarsophalangeal and several in terphalangeal joints. No cortical erosions or periosteal reaction. Diffuse osteopenia. Small plantar calcaneal spur. Soft tissues are unremarkable. IMPRESSION: 1. 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 No acute osseous abnormality. Reviewed, dictated and finalized at location A. HAUL OR FARM CHARTER BUS DRIVER IMPRESSION: 1. 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 No acute osseous abn ormality.
[2021-07-02 17:49] VITALS: BP 149/73; PULSE 67; RESP 18; TEMP 36.2; O2SAT 98
--- NOTE | 2021-07-02 17:54 | ECG_ITS ---
Measurements Intervals [place] Rate: 69 P: 62 TX: 139 QRS: 53 QRSD: 69 T: 74 QT: 419 QTc: 449 Interpretive Statements SINUS RHYTHM WITH MARKED SINUS ARRHYTHMIA ATRIAL PREMATURE COMPLEXES BORDERLINE ECG Electronically Signed On 07-02-2021 20:18:48 NEEDLE CONTROL CHENILLER by Tristen Lance D.O.
[2021-07-02 18:28] LABS: Basophils Percent Auto 0.4 % (0.2-1.2); Eosinophils Absolute Auto 0.3 K/mm3 (0-0.3); Eosinophils Percent Auto 3.6 % (0-4.4); Hematocrit 42.6 % (42.0-52.0); Immature Granulocyte Absolute 0.03 K/mm3 (0.00-0.031); Immature Granulocyte Percent A 0.3 % (0-0.5); Lymphocytes Absolute Auto 1.84 K/mm3 (0.9-3.2); Lymphocytes Percent Auto 19.7 % (18.3-44.2); Mean Corpuscular HGB Conc 32.9 g/dl (32-36); Mean Corpuscular Hemoglobin 30.4 pg (26-34); Mean Corpuscular Volume 92.4 fl (80-100); Mean Platelet Volume 9.3 fl (7.4-10.4); Monocytes Absolute Auto 0.6 K/mm3 (0.1-0.6); Monocytes Percent Auto 6.5 % (2.6-8.5); Neutrophils Absolute Auto 6.5 K/mm3 (1.3-6.7); Neutrophils Percent Auto 69.5 % (45.5-73.1); Platelet Count Result 238 k/mm3 (150-375); Red Blood Count 4.61 M/mm3 (4.6-6.20); White Blood Count 9.3 K/mm3 (4.5-10.0)
[2021-07-02 18:41] LABS: Alanine Aminotransferase 23 U/L (4-50); Albumin Level 4.6 g/dL (3.5-5.1); Alkaline Phosphatase 88 U/L (38-126); Anion Gap 9 mmol/L (8-16); Aspartate Amino Transferase 23 U/L (17-59); Bilirubin,Total 0.4 mg/dL (0.2-1.3); Blood Urea Nitrogen 21 mg/dL (9-20); Calcium 12.2 mg/dL (8.4-10.2); Carbon Dioxide 26 mmol/L (22-30); Chloride 108 mmol/L (98-107); Estimated CRCL calculation 53 ml/min; Estimated Glomerular Filt Rate 54; Glucose 100 mg/dL (65-110); Potassium 4.2 mmol/L (3.4-5.0); Sodium 143 mmol/L (137-145)
[2021-07-02 20:02] VITALS: BP 179/97; PULSE 70; RESP 18; TEMP 36.4; O2SAT 95
[2021-07-02 20:55] VITALS: BP 173/74; PULSE 67; RESP 20; O2SAT 97
--- NOTE | 2021-07-02 21:06 | ED.GENADULT ---
HPI - General Adult General Chief complaint: Weakness Stated complaint: dizzy, weak after taking Xanax for test Time Seen by Provider: 07/02/21 20:48 Source: patient and RN notes reviewed History of Present Illness HPI narrative: Patient is a 75 y/o male complaining of left leg weakness for last 3-4 days according to his . Patient thought he noticed this morning when he woke up possibly suggesting last known well was last night. The exact timing of LKW is not well defined, likely 24 hours or more. There is no known alleviating or exacerbating factor. He states that he fell around 3:00 PM today and was not able to get up. He was given some Xanax for a scheduled CTA that was done earlier today. He has some left foot pain from the fall. Related Data Home Medications Medication Instructions Recorded Confirmed No Home Medications 07/07/21 07/07/21 Allergies Allergy/AdvReac Type Severity Reaction Status Date / Time No Known Allergies Allergy Verified 07/03/21 13:22 Review of Systems Constitutional: Constitutional: Denies chills, Denies fever(s), Denies headache(s) and Reports weakness Eyes: Eyes: Denies blurry vision ENT: Denies headache(s) and Denies neck pain Cardiovascular: Cardiovascular: Denies chest pain and Denies dyspnea Respiratory: Respiratory: Denies cough and Denies dyspnea Gastrointestinal: Gastrointestinal: Denies abdominal pain, Denies diarrhea, Denies nausea and Denies vomiting Genitourinary: Genitourinary: Denies hematuria and Denies dysuria Musculoskeletal: Musculoskeletal: Denies back pain, Denies neck pain and Reports other (left foot pain) Neurologic: Denies headache(s) and Reports weakness [facility] Past Medical History Medical History Acquired hypothyroidism Benign prostatic hyperplasia with lower urinary tract symptoms Carotid artery disease Patient stated that he is scheduled to receive a carotid endarterectomy. 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 Surgical History Surgical History H/O bilateral cataract extraction Left leg H/O laminectomy History of colonoscopy History of femoropopliteal bypass December 2020 History of intravascular stent placement Left leg Status post lumbar laminectomy Status post recent transurethral resection of prostate Status post rotator cuff repair Family History Family History Mother Hypertension Cerebrovascular accident Carcinoma of colon Family history of malignant neoplasm of breast in first degree relative Sibling Family history of pancreatic cancer Father Family history of coronary artery disease Other Family history of malignant neoplasm Social History Social History (Updated 07/08/21 @ 13:08 by Juanpablo Herrera MD) Social History: 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 He lives with his who is the durable power corporate attorney for healthcare. Smoking packs per day: 1 Smoking cigarettes per day: 20.0 Years smoked: 40 Smoking pack-years: 40.00 Smoking status: Never smoker Tobacco type: cigarettes Second hand tobacco smoke exposure: No Smoking end date: 02/14/19 Alcohol intake: never Alcohol use details: rare, holidays Substance use: never Substance use type: does not use Additional living arrangements comments: SPOUSE Gender identity (if verbalized by the patient): Male Sexual Orientation (if Verbalized by the Patient): Straight or Heterosexual Spiritual care concerns: No Exam Const: General: no acute distress and well d
[2021-07-02 22:00] VITALS: BP 198/70; PULSE 72; RESP 21; O2SAT 95
[2021-07-02 22:03] LABS: Add Urine Microscopic? YES; Appearance Urine Clear (Clear); Bilirubin Urine Negative (Negative); Blood Urine Negative (Negative); Color Urine Yellow (Yellow); Glucose Urine UA Negative (Negative); Ketones Urine Negative (Negative); Leukocyte Esterase Ur Trace LEU/UL (Negative); Nitrate Urine Positive (Negative); Protein Urine Negative (Negative); Specific Grav Ur 1.021 (1.001-1.035); Urobilinogen Urine Negative mg/dL (<2.0)
[2021-07-02 22:18] VITALS: BP 198/70; PULSE 78; RESP 15; O2SAT 94
[2021-07-02] MEDS: lisinopriL 2.5 MG TABLET PO (22:18)
[2021-07-02 22:58] VITALS: BP 167/91; PULSE 59; RESP 20; O2SAT 96
[2021-07-02] MEDS: SODIUM CHLORIDE 0.9% IV 1,000 ML 999 ML IV CONT (23:13)
[2021-07-03] VITALS (13 sets, daily range): BP systolic 104–199; BP diastolic 68–105; PULSE 60–75; RESP 15–33; TEMP 36.3; O2SAT 94–99; BMI 25.9
--- NOTE | 2021-07-03 08:46 | PC.NURSE ---
breakfast tray was ordered at 0845
--- NOTE | 2021-07-03 12:27 | PC.NURSE ---
hospitalist in with pt and his . carrington faxed to [address] [place] [address]
--- NOTE | 2021-07-03 13:27 | ADMGEN ---
This patient, Albert Soliz, was admitted to Medical Room 245-. Patient/family oriented to hospital policies and general routines including ID bracelet, bed and alarms, visiting hours, pain management, procedures, bathroom and other care routines, personal items, smoking policy, room service/diet, and visiting hours. Information on how to activate the Rapid Response Team has been discussed. Patient/Family are encouraged to report perceived risks to care and to ask questions if they do not understand what they are told or what they should do.
--- NOTE | 2021-07-03 16:29 | PM.IMHP ---
H&P: HPI History of Present Illness Date/Time: 07/03/21 16:29 Chief Complaint: dizzy, weak after taking Xanax for test Narrative: 75-year-old male patient who has a past medical history of carotid artery disease. The patient is waiting for a his carotid enterectomy.Pt was having CT test felt dizzy took xanax to stop dizziness Pt continues to feel dizzy so can into ED for elevation. Pt felt like he was losing his balance. Pt states he has been vomiting and feeling faint for 4 months. and has mri and ct head recently. pt had mri brain which showed- . No acute intracranial findings. 2. Chronic age related findings. 3. Old bilateral basal ganglia lacunar infarctions. in 04/2021 Review of Systems Review of Systems: All systems reviewed & are unremarkable except as noted in HPI and below PMFSH Past Medical History Medical History Acquired hypothyroidism Benign prostatic hyperplasia with lower urinary tract symptoms Carotid artery disease Patient stated that he is scheduled to receive a carotid endarterectomy. 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 Surgical History Surgical History H/O bilateral cataract extraction Left leg H/O laminectomy History of colonoscopy History of femoropopliteal bypass December 2020 History of intravascular stent placement Left leg Status post lumbar laminectomy Status post recent transurethral resection of prostate Status post rotator cuff repair Family History Family History Mother Hypertension Cerebrovascular accident Carcinoma of colon Family history of malignant neoplasm of breast in first degree relative Sibling Family history of pancreatic cancer Father Family history of coronary artery disease Other Family history of malignant neoplasm Social History Social History Social History: 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 He lives with his who is the durable power tire buster for healthcare. The patient desires to be a full code. Smoking packs per day: 1 Smoking cigarettes per day: 20.0 Years smoked: 40 Smoking pack-years: 40.00 Smoking status: Never smoker Tobacco type: cigarettes Second hand tobacco smoke exposure: No Smoking end date: 02/14/19 Alcohol intake: never Alcohol use details: rare, holidays Substance use: never Substance use type: does not use Additional living arrangements comments: SPOUSE Gender identity (if verbalized by the patient): Male Sexual Orientation (if Verbalized by the Patient): Straight or Heterosexual Spiritual care concerns: No Meds Home Medications and Allergies Home Medications Medication Instructions Recorded Confirmed Type albuterol sulfate 90 mcg/actuation 2 puff INHALATION Q4-6H PRN gm 07/05/19 07/03/21 History aerosol inhaler aspirin 81 mg tablet,delayed 81 mg PO QPM 07/05/19 07/03/21 History release cholecalciferol (vitamin D3) 25 1,000 unit PO DAILY 07/05/19 07/03/21 History mcg (1,000 unit) capsule magnesium oxide 400 mg PO DAILY 07/05/19 07/03/21 History tamsulosin 0.4 mg capsule 0.4 mg PO QHS 01/22/21 07/03/21 History gabapentin 400 mg PO QID 04/29/21 07/03/21 History cyanocobalamin (vitamin B-12) 1,000 mcg PO QAM #30 tablet 05/06/21 07/03/21 Rx [Vitamin B-12] metoprolol succinate 25 mg PO DAILY #0 tablet 05/06/21 07/03/21 Rx pantoprazole 40 mg tablet,delayed 40 mg PO BID #60 tablet 05/30/21 07/03/21 Rx release atorvastatin 80 mg tablet 40 mg P
[2021-07-03] MEDS: SODIUM CHLORIDE 0.9% IV 1,000 ML 75 ML IV CONT (18:18)
[2021-07-03] MEDS: ASPIRIN 81 MG ENTERIC TABLET PO (18:18)
[2021-07-03] MEDS: PANTOPRAZOLE 40 MG TABLET PO (18:18)
[2021-07-03] MEDS: GABAPENTIN 400 MG CAPSULE PO (21:53)
[2021-07-03] MEDS: TAMSULOSIN HCL 0.4 MG CAPSULE PO (21:53)
[2021-07-04] VITALS (10 sets, daily range): BP systolic 160–191; BP diastolic 63–90; PULSE 66–93; RESP 17–18; TEMP 36–36.6; O2SAT 94–98
[2021-07-04] MEDS: SODIUM CHLORIDE 0.9% IV 1,000 ML 75 ML IV CONT ×2 (08:19→22:06)
[2021-07-04] MEDS: LORazepam INJ (*CRX) 2 MG/ML VIAL 0.5 MG IV PUSH ×2 (08:19→21:31)
[2021-07-04 08:39] LABS: Anion Gap 9 mmol/L (8-16); Blood Urea Nitrogen 17 mg/dL (9-20); Calcium 11.8 mg/dL (8.4-10.2); Carbon Dioxide 22 mmol/L (22-30); Chloride 106 mmol/L (98-107); Creatine Kinase 63 U/L (55-170); Estimated CRCL calculation 51 ml/min; Estimated Glomerular Filt Rate 59; Glucose 110 mg/dL (65-110); Sodium 137 mmol/L (137-145)
[2021-07-04] MEDS: levETIRAcetam 500MG/NACL 100ML 500 MG/100 ML BAG 400 MG IVPB ×2 (09:12→22:06)
[2021-07-04] MEDS: ATORVASTATIN 40 MG TABLET PO (09:17)
[2021-07-04] MEDS: FERROUS SULFATE 324 MG TABLET PO (09:17)
[2021-07-04] MEDS: PANTOPRAZOLE 40 MG TABLET PO ×2 (09:17→16:33)
[2021-07-04] MEDS: GABAPENTIN 400 MG CAPSULE PO ×4 (09:17→21:29)
[2021-07-04] MEDS: CLOPIDOGREL BISULFATE 75 MG TABLET PO (09:17)
[2021-07-04] MEDS: CYANOCOBALAMIN 1,000 MCG TABLET 1000 MCG PO (09:17)
[2021-07-04] MEDS: METOPROLOL SUCCINATE EXT REL 25 MG TABCR PO (09:18)
[2021-07-04] MEDS: FLUTICASONE/UMECLIDIN/VILANTER 100-62.5-25 MCG ELLIPTA 1 PUFF INHALATION (09:36)
[2021-07-04] MEDS: MAGNESIUM OXIDE 400 MG TABLET PO (09:38)
--- NOTE | 2021-07-04 09:50 | PM.IMPN ---
Progress Note: A&P Assessment and Plan (1) Frequent falls: Code(s): R29.6 - Repeated falls Status: Acute Assessment and Plan: Pt has been having vertigo episodes in the past improved with antivert and fluid hydration (2) Dizziness: Code(s): R42 - Dizziness and giddiness Status: Acute Assessment and Plan: Pt is awaiting cartoid endectaromy pt had mri brain repeated today, echo completed recently in 04/2021 (3) COLE (acute kidney injury): Code(s): N17.9 - Acute kidney failure, unspecified Status: Acute Assessment and Plan: Fluid hydration, creat is better Uc is pending (4) DVT prophylaxis: Code(s): Z29.9 - Encounter for prophylactic measures, unspecified Status: Acute Assessment and Plan: SCD (5) HLD (hyperlipidemia): Code(s): E78.5 - Hyperlipidemia, unspecified Status: Acute (6) History of prostate cancer: Code(s): Z85.46 - Personal history of malignant neoplasm of prostate Status: Acute (7) History of TIAs: Code(s): Z86.73 - Personal history of transient ischemic attack (TIA), and cerebral infarction without residual deficits Status: Acute (8) Seizures: Code(s): R56.9 - Unspecified convulsions Status: Acute Assessment and Plan: Pt having activity seizures, iv ativan started neurochecks, seizure precautions, iv keppra started Neurology consulted Subjective Date/time seen: 07/04/21 09:50 Interval history: 75-year-old male patient who has a past medical history of carotid artery disease. The patient is waiting for a his carotid enterectomy.Pt was having CT test felt dizzy took xanax to stop dizziness Pt continues to feel dizzy so can into ED for elevation. Pt felt like he was losing his balance. This morning pt having ongoing seizure activity settled now with iv ativan Review of Systems Review of Systems: All systems reviewed & are unremarkable except as noted in HPI and below Exam Const: General: well developed and other (pt having seizure activity ) HENMT: Head: normocephalic Eyes: General: appearance normal, both eyes and all related structures Pupils: Equal, round and reactive pupils present Neck: Neck: supple Chest: Chest palpation & inspection: normal inspection of the chest Resp: Effort & Inspection: normal respiratory effort Auscultation: clear to auscultation bilaterally Cardio: Jugular venous distension: no JVD Rhythm: regular rhythm Heart sounds: S1 normal heart sound present and S2 normal heart sound present GI: Inspection: normal to inspection Auscultation: normal bowel sounds Skin: General skin exam: normal color and dry skin Neuro: Cranial nerves: Yes CN's II-XII intact bilaterally and Yes Equal, round and reactive pupils present Cognition (Neuro): normal cognition Speech: normal speech Motor exam (neuro): 5/5 motor strength present throughout Extrem: General: normal to inspection Psych: Appearance: grossly normal Mental Status: mental status grossly normal Objective Data Vital Signs Vital Signs: Vital Signs - 24 hr 07/03/21 11:57 07/03/21 16:00 07/03/21 20:00 Temperature Pulse Rate 75 75 75 Respiratory Rate 15 Blood Pressure 104/88 Pulse Oximetry 99 07/03/21 20:04 07/03/21 22:00 07/04/21 00:00 Temperature 36.3 C L Pulse Rate 71 72 69 Respiratory Rate 18 20 Blood Pressure 115/75 Pulse Oximetry 94 98 07/04/21 04:00 07/04/21 06:00 07/04/21 09:18 Temperature 36.6 C Pulse Rate 82 81 80 Respiratory Rate 18 Blood Pressure 162/63 H Pulse Oximetry 96 Intake/Output Intake/Output: Intake & Output 07/01/21 07/02/21 07/03/21 07/04/21 23:59 23:59 23:59 23:59 Intake Total 1440 1000 Output Total 550 400 400 Balance -550 1040 600 Meds/Results Medications: Active Medications Generic Name Dose Route Start Last Admin Trade Name Freq PRN Reason Stop Dose Admin Albuterol 2 puff 07/03
--- NOTE | 2021-07-04 14:45 | PCOTNOTE ---
Attempted OT evaluation, per RN hold therapy for today due to patient being lethargic at this time. will follow and attempt at later time.
--- NOTE | 2021-07-04 15:31 | PCPTNOTE ---
Pt not seen this date for PT eval due to medical status. Will try again tomorrow.
[2021-07-04] MEDS: lisinopriL 10 MG TABLET PO (16:33)
[2021-07-04] MEDS: TAMSULOSIN HCL 0.4 MG CAPSULE PO (21:28)
[2021-07-05] VITALS (9 sets, daily range): BP systolic 147–186; BP diastolic 64–98; PULSE 58–118; RESP 16–22; TEMP 36.1–36.6; O2SAT 90–95
[2021-07-05] MEDS: levETIRAcetam 500MG/NACL 100ML 500 MG/100 ML BAG 400 MG IVPB ×3 (05:28→22:12)
--- NOTE | 2021-07-05 08:00 | PCOTNOTE ---
Pt. orders to be canceled. Pt. being transferred to [place] due to critical condition. Not appropriate for therapy at this time.
[2021-07-05] MEDS: ASPIRIN 325 MG TABLET PO (08:45)
[2021-07-05] MEDS: ATORVASTATIN 40 MG TABLET PO (08:45)
[2021-07-05] MEDS: MAGNESIUM OXIDE 400 MG TABLET PO (08:45)
[2021-07-05] MEDS: FERROUS SULFATE 324 MG TABLET PO (08:45)
[2021-07-05] MEDS: CLOPIDOGREL BISULFATE 75 MG TABLET PO (08:45)
[2021-07-05] MEDS: lisinopriL 10 MG TABLET PO ×2 (08:46→16:27)
[2021-07-05] MEDS: PANTOPRAZOLE 40 MG TABLET PO ×2 (08:46→16:27)
[2021-07-05] MEDS: CYANOCOBALAMIN 1,000 MCG TABLET 1000 MCG PO (08:46)
[2021-07-05] MEDS: METOPROLOL SUCCINATE EXT REL 25 MG TABCR PO (08:46)
[2021-07-05] MEDS: GABAPENTIN 400 MG CAPSULE PO ×3 (08:46→16:27)
--- NOTE | 2021-07-05 09:54 | WPDNEURCNPN ---
Assessment and Plan Additional Plan 1. Status post right hemispheric stroke with documented moderate stenosis of left common carotid artery, 45% stenosis of the proximal left internal carotid artery and 22% stenosis of the right internal carotid artery without any aneurysm or significant intracranial arterial stenosis but severe stenosis of the right vertebral artery as well with moderate stenosis of proximal left vertebral artery documenting the anterior and posterior circulation involvement with the patient is taking aspirin and Plavix and if no surgical intervention is done in the long run he will benefit from the anticoagulation therapy so he needs to be transferred to the [facility] for further recommendation and in the meantime can continue aspirin and Plavix Consult date: 07/05/21 HPI: Albert Soliz is a 75 year old male admitted to the hospital for the complaints of dizziness and generalized weakness subsequent to taking his Xanax for the test but patient does have underlying history of the carotid disease and is waiting for the carotid endarterectomy . Patient reportedly has been feeling nauseous and vomited 4 months, additionally he is undergoing history of acquired hypothyroidism, COPD, hypertension, GERD, prostatic cancer, lumbar spondylosis, and history of stenosis of artery of left lower extremity for which stenting has been done. Patient has been taking as an outpatient aspirin 81 mg daily in addition to clopidogrel 75 mg daily and atorvastatin 80 mg daily along with history of years smoked 40. Review of Systems Review of Systems: All systems reviewed & are unremarkable except as noted in HPI and below PMFSH Past Medical History Medical History Acquired hypothyroidism Benign prostatic hyperplasia with lower urinary tract symptoms Carotid artery disease Patient stated that he is scheduled to receive a carotid endarterectomy. 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 Surgical History Surgical History H/O bilateral cataract extraction Left leg H/O laminectomy History of colonoscopy History of femoropopliteal bypass December 2020 History of intravascular stent placement Left leg Status post lumbar laminectomy Status post recent transurethral resection of prostate Status post rotator cuff repair Family History Family History Mother Hypertension Cerebrovascular accident Carcinoma of colon Family history of malignant neoplasm of breast in first degree relative Sibling Family history of pancreatic cancer Father Family history of coronary artery disease Other Family history of malignant neoplasm Social History Social History Social History: 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 He lives with his who is the durable power staff attorney for healthcare. The patient desires to be a full code. Smoking packs per day: 1 Smoking cigarettes per day: 20.0 Years smoked: 40 Smoking pack-years: 40.00 Smoking status: Never smoker Tobacco type: cigarettes Second hand tobacco smoke exposure: No Smoking end date: 02/14/19 Alcohol intake: never Alcohol use details: rare, holidays Substance use: never Substance use type: does not use Additional living arrangements comments: SPOUSE Gender identity (if verbalized by the patient): Male Sexual Orientation (if Verbalized by the Patient): Straight or Heterosexual Spiritual care concerns: No Meds Home Medications and Allergies Home Medications Medica
--- NOTE | 2021-07-05 10:22 | PM.IMPN ---
Progress Note: A&P Assessment and Plan (1) Frequent falls: Code(s): R29.6 - Repeated falls Status: Acute Assessment and Plan: in the past (2) Dizziness: Code(s): R42 - Dizziness and giddiness Status: Acute Assessment and Plan: Pt is awaiting cartoid endectaromy pt had mri brain showed subacute infarct in frontoparteial region (3) COLE (acute kidney injury): Code(s): N17.9 - Acute kidney failure, unspecified Status: Resolved Assessment and Plan: Pt can be on hydration (4) DVT prophylaxis: Code(s): Z29.9 - Encounter for prophylactic measures, unspecified Status: Acute Assessment and Plan: SCD (5) HLD (hyperlipidemia): Code(s): E78.5 - Hyperlipidemia, unspecified Status: Acute (6) History of prostate cancer: Code(s): Z85.46 - Personal history of malignant neoplasm of prostate Status: Acute (7) History of TIAs: Code(s): Z86.73 - Personal history of transient ischemic attack (TIA), and cerebral infarction without residual deficits Status: Acute Assessment and Plan: HIstory of TIAS (8) Seizures: Code(s): R56.9 - Unspecified convulsions Status: Resolved Assessment and Plan: Pt having activity seizures, iv ativan started neurochecks, seizure precautions, iv keppra started Neurology consulted, seizures appear controlled today (9) CVA (cerebral vascular accident): Code(s): I63.9 - Cerebral infarction, unspecified Status: Acute Assessment and Plan: New CVA pt to continue Plavix, ASA, ST and PT ordered hopeful transfer to [place] for cartoidectomy. Pt seen by neurology here Subjective Date/time seen: 07/05/21 10:22 Interval history: 75-year-old male patient who has a past medical history of carotid artery disease. The patient is waiting for a his carotid enterectomy.Pt was having CT test felt dizzy took xanax to stop dizziness Pt continues to feel dizzy so can into ED for elevation. Pt felt like he was losing his balance. MRi shows acute infarct. pt has increased weakness to his left side. Pt was having seizures yesterday was difficult to transfer. Will work on transferring patient to [place] today. Review of Systems Review of Systems: All systems reviewed & are unremarkable except as noted in HPI and below Exam Const: General: well developed and other (pt having seizure activity ) Nutritional Appearance: other (dry mucous membranes ) HENMT: Head: normocephalic Eyes: General: appearance normal, both eyes and all related structures Pupils: Equal, round and reactive pupils present Neck: Neck: supple Chest: Chest palpation & inspection: normal inspection of the chest Resp: Effort & Inspection: normal respiratory effort Auscultation: clear to auscultation bilaterally Cardio: Jugular venous distension: no JVD Rhythm: regular rhythm Heart sounds: S1 normal heart sound present and S2 normal heart sound present GI: Inspection: normal to inspection Auscultation: normal bowel sounds Skin: General skin exam: normal color and dry skin Neuro: Cranial nerves: Yes CN's II-XII intact bilaterally and Yes Equal, round and reactive pupils present Cognition (Neuro): normal cognition Motor exam (neuro): Other motor observations present (weakness on left side arm and leg 3/5 ) Psych: Appearance: other (tired today difficult to assess mood ) Objective Data Vital Signs Vital Signs: Vital Signs - 24 hr 07/04/21 12:00 07/04/21 16:00 07/04/21 19:32 Temperature 36.3 C L 36.0 C L Pulse Rate 66 73 70 Respiratory Rate 18 17 Blood Pressure 191/76 H 160/90 H Pulse Oximetry 98 94 07/04/21 20:00 07/04/21 21:45 07/05/21 00:00 Temperature Pulse Rate 68 72 Respiratory Rate Blood Pressure Pulse Oximetry 96 07/05/21 03:35 07/05/21 04:00 07/05/21 08:46 Temperature 36.6 C Pulse Rate 81 81 77 Respiratory Rate 16 Blood Pressure 155/98 H
[2021-07-05] MEDS: SODIUM CHLORIDE 0.9% IV 1,000 ML 75 ML IV CONT (14:41)
[2021-07-05] MEDS: LORazepam INJ (*CRX) 2 MG/ML VIAL 0.5 MG IV PUSH (16:23)
[2021-07-06] VITALS (11 sets, daily range): BP systolic 156–185; BP diastolic 70–81; PULSE 95–112; RESP 16–28; TEMP 36.5–37.1; O2SAT 93–96
[2021-07-06] MEDS: SODIUM CHLORIDE 0.9% IV 1,000 ML 75 ML IV CONT (06:04)
[2021-07-06] MEDS: levETIRAcetam 500MG/NACL 100ML 500 MG/100 ML BAG 400 MG IVPB ×3 (06:04→21:42)
--- NOTE | 2021-07-06 10:36 | PM.IMPN ---
Progress Note: A&P Assessment and Plan (1) Frequent falls: Code(s): R29.6 - Repeated falls Status: Acute Assessment and Plan: in the past (2) Dizziness: Code(s): R42 - Dizziness and giddiness Status: Acute Assessment and Plan: Pt is awaiting cartoid endectaromy pt had mri brain showed subacute infarct in frontoparteial region (3) COLE (acute kidney injury): Code(s): N17.9 - Acute kidney failure, unspecified Status: Resolved Assessment and Plan: Fluids stopped (4) DVT prophylaxis: Code(s): Z29.9 - Encounter for prophylactic measures, unspecified Status: Acute Assessment and Plan: SCD (5) HLD (hyperlipidemia): Code(s): E78.5 - Hyperlipidemia, unspecified Status: Acute (6) History of prostate cancer: Code(s): Z85.46 - Personal history of malignant neoplasm of prostate Status: Acute (7) History of TIAs: Code(s): Z86.73 - Personal history of transient ischemic attack (TIA), and cerebral infarction without residual deficits Status: Acute Assessment and Plan: HIstory of TIAS (8) Seizures: Code(s): R56.9 - Unspecified convulsions Status: Resolved Assessment and Plan: Pt having activity seizures, iv ativan started neurochecks, seizure precautions, iv keppra started Neurology consulted, seizures appear controlled today (9) CVA (cerebral vascular accident): Code(s): I63.9 - Cerebral infarction, unspecified Status: Acute Assessment and Plan: New CVA pt to continue Plavix, ASA, ST and PT ordered hopeful transfer to [facility] for cartoidectomy. Pt seen by neurology here (10) Aspiration pneumonia: Code(s): J69.0 - Pneumonitis due to inhalation of food and vomit Status: Acute Assessment and Plan: Likely like patient has aspirated this morning from cxr and clinical picture. IV vancomycin and IV zosyn ordered. pt made NPO Oral medications changed IV. RPT swallow evaluation. Subjective Date/time seen: 07/06/21 10:36 Interval history: 75-year-old male patient who has a past medical history of carotid artery disease. The patient is waiting for a his carotid enterectomy.Pt was having CT test felt dizzy took xanax to stop dizziness Pt continues to feel dizzy so came into ED for elevation. Pt felt like he was losing his balance. MRi shows acute infarct. pt has increased weakness to his left side. Pt was having seizures yesterday was difficult to transferring to [place]. Pt had 3-4 seizures on , 1 seizure yesterday. So far no seizures today. However pt appears acutely SOB ? aspiration pneumonia, CXR stat ordered. Pt will not be able to transfer today. Review of Systems Review of Systems: All systems reviewed & are unremarkable except as noted in HPI and below Exam Const: Other: DRooling tired appearing SOB Resp: Effort & Inspection: normal respiratory effort Auscultation: other (BL crackles at bases ) Cardio: Jugular venous distension: no JVD Rhythm: regular rhythm Heart sounds: S1 normal heart sound present and S2 normal heart sound present GI: Inspection: normal to inspection Auscultation: normal bowel sounds Skin: General skin exam: normal color and dry skin Neuro: Cranial nerves: Yes CN's II-XII intact bilaterally and Yes Equal, round and reactive pupils present Cognition (Neuro): normal cognition Speech: normal speech Motor exam (neuro): Other motor observations present (weakness on left side arm and leg 3/5 ) Extrem: General: normal to inspection Psych: Appearance: other (tired today difficult to assess mood ) Mental Status: mental status grossly normal Objective Data Vital Signs Vital Signs: Vital Signs - 24 hr 07/05/21 12:00 07/05/21 16:00 07/05/21 20:00 Temperature Pulse Rate 58 L 67 114 H Respiratory Rate 16 Blood Pressure 147/64 H Pulse Oximetry 94 90 07/05/21 21:25 07/06/21 00:00 07/06/21 04:00 Tem
[2021-07-06] MEDS: ALBUTEROL SULFATE NEB 2.5 MG/0.5 ML INH INHALATION (12:13)
[2021-07-06] MEDS: FUROSEMIDE INJ 40 MG/4 ML VIAL 20 MG IV PUSH (12:13)
--- NOTE | 2021-07-06 13:53 | PCSTNOTE ---
Order received for another MBS (one just completed yesterday). Dr was notified re purpose of repeating test within [address] stated pt appears to be aspirating recommended diet from MBS. Prior to performing MBS on this date, pt was seen bedside. Pt was unresponsive. Pt's spouse was present and stated he has been like this since all day . No oral trials could be assessed at this time as he is not arousable. ST will attempt evaluation tomorrow.
[2021-07-07] VITALS: PULSE 113
[2021-07-07] MEDS: LORazepam INJ (*CRX) 2 MG/ML VIAL 0.5 MG IV PUSH (01:00)
--- NOTE | 2021-07-07 01:20 | PC.NURSE ---
Call placed to patient related to decline in condition. Informed that I had spoke with Dr Moreland and was going to give patient medication to keep him comfortable.
[2021-07-07] MEDS: MORPHINE SULFATE (*CRX) 2 MG/ML INJ IV PUSH ×4 (01:25→12:32)
[2021-07-07] MEDS: ATROPINE SULFATE 1% OPHTH SOLN 5 ML BOTTLE 2 DROP SUBLINGUAL ×3 (01:46→05:40)
[2021-07-07] MEDS: levETIRAcetam 500MG/NACL 100ML 500 MG/100 ML BAG 400 MG IVPB (05:40)
--- NOTE | 2021-07-07 08:20 | PCSTNOTE ---
Upon attempt to see pt for swallow evaluation, RN informed that pt has been put on hospice; therefore no evaluation needed at this time.
[2021-07-07 08:28] LABS: Hematocrit 39.4 % (42.0-52.0); Hemoglobin 12.8 g/dL (14.0-18.0); Mean Corpuscular HGB Conc 32.5 g/dl (32-36); Mean Corpuscular Hemoglobin 30.6 pg (26-34); Mean Corpuscular Volume 94.3 fl (80-100); Mean Platelet Volume 9.2 fl (7.4-10.4); Platelet Count Result 258 k/mm3 (150-375); Red Blood Count 4.18 M/mm3 (4.6-6.20); White Blood Count 17.3 K/mm3 (4.5-10.0)
[2021-07-07 08:51] LABS: Anion Gap 10 mmol/L (8-16); Blood Urea Nitrogen 32 mg/dL (9-20); Calcium 12.1 mg/dL (8.4-10.2); Carbon Dioxide 21 mmol/L (22-30); Chloride 107 mmol/L (98-107); Estimated CRCL calculation 25 ml/min; Estimated Glomerular Filt Rate 25; Glucose 126 mg/dL (65-110); Potassium 4.4 mmol/L (3.4-5.0); Sodium 138 mmol/L (137-145)
--- NOTE | 2021-07-07 12:22 | PM.IMPN ---
Progress Note: A&P Assessment and Plan (1) Frequent falls: Code(s): R29.6 - Repeated falls Status: Acute Assessment and Plan: in the past (2) Dizziness: Code(s): R42 - Dizziness and giddiness Status: Acute Assessment and Plan: Pt is awaiting cartoid endectaromy pt had mri brain showed subacute infarct in frontoparteial region (3) COLE (acute kidney injury): Code(s): N17.9 - Acute kidney failure, unspecified Status: Resolved Assessment and Plan: Fluids stopped (4) DVT prophylaxis: Code(s): Z29.9 - Encounter for prophylactic measures, unspecified Status: Acute Assessment and Plan: SCD (5) HLD (hyperlipidemia): Code(s): E78.5 - Hyperlipidemia, unspecified Status: Acute (6) History of prostate cancer: Code(s): Z85.46 - Personal history of malignant neoplasm of prostate Status: Acute (7) History of TIAs: Code(s): Z86.73 - Personal history of transient ischemic attack (TIA), and cerebral infarction without residual deficits Status: Acute Assessment and Plan: HIstory of TIAS (8) Seizures: Code(s): R56.9 - Unspecified convulsions Status: Resolved Assessment and Plan: Pt having activity seizures, iv ativan started neurochecks, seizure precautions, iv keppra started Neurology consulted, seizures appear controlled today (9) CVA (cerebral vascular accident): Code(s): I63.9 - Cerebral infarction, unspecified Status: Acute Assessment and Plan: New CVA pt to continue Plavix, ASA, ST and PT ordered hopeful transfer to [place] for cartoidectomy. Pt seen by neurology here (10) Aspiration pneumonia: Code(s): J69.0 - Pneumonitis due to inhalation of food and vomit Status: Acute Assessment and Plan: Likely like patient has aspirated this morning from cxr and clinical picture. IV vancomycin and IV zosyn ordered. pt made NPO Oral medications changed IV. RPT swallow evaluation. Subjective Date/time seen: 07/07/21 12:22 Interval history: 75-year-old male patient who has a past medical history of carotid artery disease. The patient is waiting for a his carotid enterectomy.Pt was having CT test felt dizzy took xanax to stop dizziness Pt continues to feel dizzy so came into ED for elevation. Pt felt like he was losing his balance. MRi shows acute infarct. pt has increased weakness to his left side. However pt appears acutely SOB ? aspiration pneumonia, CXR stat ordered. Pt will not be able to transfer today. Exam Const: General: well developed and other (pt having seizure activity ) Nutritional Appearance: other (dry mucous membranes ) Other: DRooling tired appearing SOB HENMT: Head: normocephalic Eyes: General: appearance normal, both eyes and all related structures Pupils: Equal, round and reactive pupils present Neck: Neck: supple Chest: Chest palpation & inspection: normal inspection of the chest Resp: Effort & Inspection: normal respiratory effort Auscultation: other (BL crackles at bases ) Cardio: Jugular venous distension: no JVD Rhythm: regular rhythm Heart sounds: S1 normal heart sound present and S2 normal heart sound present GI: Inspection: normal to inspection Auscultation: normal bowel sounds : General: Yes no CVA tenderness Back/Spine/Pelvis: Back: no CVA tenderness Skin: General skin exam: normal color and dry skin Neuro: Cranial nerves: Yes CN's II-XII intact bilaterally and Yes Equal, round and reactive pupils present Cognition (Neuro): normal cognition Speech: normal speech Motor exam (neuro): Other motor observations present (weakness on left side arm and leg 3/5 ) Extrem: General: normal to inspection Psych: Appearance: other (tired today difficult to assess mood ) Mental Status: mental status grossly normal Objective Data Vital Signs Vital Signs: Vital Signs - 24 hr 07/06/21 12:28 07/06/21 14:00
--- NOTE | 2021-07-07 12:57 | PM.DS ---
DS: Admitting Diagnosis Discharge Date 07/07/2021 Admitting Diagnosis Dizzy, weak after taking Xanax for test DS: Discharge Diagnosis Discharge Diagnosis (1) HLD (hyperlipidemia): Code(s): E78.5 - Hyperlipidemia, unspecified Status: Acute (2) History of prostate cancer: Code(s): Z85.46 - Personal history of malignant neoplasm of prostate Status: Acute (3) History of TIAs: Code(s): Z86.73 - Personal history of transient ischemic attack (TIA), and cerebral infarction without residual deficits Status: Acute Assessment and Plan: HIstory of TIAS (4) Seizures: Code(s): R56.9 - Unspecified convulsions Status: Resolved Assessment and Plan: Unfortunately, pt was having seizure activity after his stroke. Pt started on iv keppra and iv ativan. Neurology consulted (5) CVA (cerebral vascular accident): Code(s): I63.9 - Cerebral infarction, unspecified Status: Acute Assessment and Plan: Pt is awaiting carotid endectaromy, recent mri brain showed subacute infarct in frontoparteial region New CVA pt to continue Plavix, ASA, ST and PT. Pt seen by neurology here (6) Aspiration pneumonia: Code(s): J69.0 - Pneumonitis due to inhalation of food and vomit Status: Acute Assessment and Plan: Unfortunately pt had a rapid decline over the past 2 days likely patient has aspirated this morning. Pt is less reponsive, family have opted for hospice care. Pt is being discharged to inpatient hospice services. DS: Summary Hospital Course Hospital Course: Pt was found to have a new CVA with left sided weakness. Pt was initially to go to [place] for transfer, unfortunately, pt was having seizure activity after his stroke. Pt started on iv keppra and iv ativan. Neurology consulted. yesterday pt had a rapid decline likely patient has aspirated yesterday morning. Pt is less responsive, family have opted for hospice care. Pt is being discharged to inpatient hospice services. Time Spent with Patient Time attestation: Total time spent providing and/or coordinating discharge services: 40 minutes on day of discharge Exam Narrative: Const: Other: Unresponsive to verbal stimuli somnolent in bed Resp: Effort & Inspection: normal respiratory effort Auscultation: decreased BS shallow breathing Cardio: Rhythm: regular rhythm Heart sounds: S1 normal heart sound present and S2 normal heart sound present GI: Inspection: normal to inspection Skin: General skin exam: normal color and dry skin Neuro: Unresponsive DS: Data Data Completed and Pending Labs on day of discharge: Labs from last 24 hours 07/07/21 07/07/21 08:20 08:20 WBC 17.3 H RBC 4.18 L Hgb 12.8 L Hct 39.4 L MCV 94.3 MCH 30.6 MCHC 32.5 RDW 14.0 Plt Count 258 MPV 9.2 Sodium 138 Potassium 4.4 Chloride 107 Carbon Dioxide 21 L Anion Gap 10 BUN 32 H D Creatinine 2.50 H Estim Creat Clear Calc 25 Estimated GFR 25 L Glucose 126 H Calcium 12.1 H Discharge Plan Discharge Attending physician on discharge: Karina De La Torre Discharging Clinician: Karina De La Torre Anticipated Discharge Date/Time: 07/07/21 13:09 Patient Disposition: Hospice - Medical Facility Activity: as tolerated Diet: as tolerated Patient Instructions: Ischemic Stroke (DC) Stand Alone Forms: General Discharge Information Follow-up/Referrals: Gavin Lynch MD [Primary Care Provider] - Discharge Medications: Discontinued ferrous sulfate [Feosol] 325 mg (65 mg iron) tablet 325 mg PO DAILY RF: 0 clopidogrel [Plavix] 75 mg tablet 75 mg PO DAILY RF: 0 aspirin 81 mg tablet,delayed release (DR/EC) 81 mg PO QPM RF: 0 Hold Instructions: Resume on 12/13/20. cholecalciferol (vitamin D3) 1,000 unit capsule 1,000 unit PO DAILY RF: 0 magnesium oxide 400 mg magnesium capsule 400 mg PO DAILY RF: 0 albuterol sulf
== END 2021-07-07 13:39 | disposition hospice, inpatient (51) | DRG 64 ==
LOC: ANHED 21:18 → ANH3MEDSUR 07-03 05:09 → ANH2MED 07-03 12:46
PROVIDERS: Admitting Provider Internal Medicine; Emergency Provider Emergency Medicine; PCP Family Medicine; Visit Provider Family Medicine
DX: I63.9 Cerebral infarction, unspecified (principal); J69.0 Pneumonitis due to inhalation of food and vomit; G81.94 Hemiplegia, unspecified affecting left nondominant side; R29.701 NIHSS score 1; R56.9 Unspecified convulsions; W19.XXXA Unspecified fall, initial encounter; E86.0 Dehydration; E03.8 Other specified hypothyroidism; R29.6 Repeated falls; E78.5 Hyperlipidemia, unspecified; J44.9 Chronic obstructive pulmonary disease, unspecified; I10 Essential (primary) hypertension; K21.9 Gastro-esophageal reflux disease without esophagitis; M47.896 Other spondylosis, lumbar region; Z66 Do not resuscitate; Z85.46 Personal history of malignant neoplasm of prostate; Z86.73 Personal history of transient ischemic attack (TIA), and cerebral infarction without residual deficits; Z79.899 Other long term (current) drug therapy; Z87.891 Personal history of nicotine dependence
CPT/HCPCS: 36415; 51701; 70450; 70496; 70498; 70551; 71045; 71046; 73630; 80048; 80053; 81001; 82550; 85025; 85027; 87077; 87086; 87088; 87186; 92611; 93005; 94640; 96361; 96374; 96375; 99285; A9270; G0378; J1940; J1953; J2060; J2270; J2543; J3370; J7030; Q9967

== ENCOUNTER 2021-07-07 11:30 | HOS | payer OTHER, MEDICARE, SELFPAY ==
[2021-07-07 14:15] VITALS: BMI 25.9
[2021-07-07] MEDS: HYDROmorphone HCL/PF (*CRX) 50 MG in SODIUM CHLORIDE 0.9% IV 95 ML IV CONT (15:40)
[2021-07-07] MEDS: ARTIFICIAL TEARS OPHTH SOLN 15 ML BOTTLE 1 DROP EACH EYE ×2 (15:48→21:13)
[2021-07-08] MEDS: ARTIFICIAL TEARS OPHTH SOLN 15 ML BOTTLE 1 DROP EACH EYE ×2 (05:37→15:16)
[2021-07-08 06:00] VITALS: BP 125/50; PULSE 100; RESP 14; O2SAT 93
--- NOTE | 2021-07-08 13:08 | PM.IMHP ---
H&P: HPI History of Present Illness Date/Time: 07/08/21 13:08 Chief Complaint: uncontrolled dyspnea Narrative: 75 y/o male was admitted to acute care after suffering a stroke with right hemiparesis and dysphagia. This was followed by seizures with aspiration. He has been minimally responsive since and 07/07 because more sob and restless. Since initiating continuous IV hydromorphone he has remained comfortable. Spouse and son are at bedside. Review of Systems Review of Systems: ROS unobtainable: Yes unobtainable due to medical condition [facility] Past Medical History Medical History Acquired hypothyroidism Benign prostatic hyperplasia with lower urinary tract symptoms Carotid artery disease Patient stated that he is scheduled to receive a carotid endarterectomy. 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 Surgical History Surgical History H/O bilateral cataract extraction Left leg H/O laminectomy History of colonoscopy History of femoropopliteal bypass December 2020 History of intravascular stent placement Left leg Status post lumbar laminectomy Status post recent transurethral resection of prostate Status post rotator cuff repair Family History Family History Mother Hypertension Cerebrovascular accident Carcinoma of colon Family history of malignant neoplasm of breast in first degree relative Sibling Family history of pancreatic cancer Father Family history of coronary artery disease Other Family history of malignant neoplasm Social History Social History (Updated 07/08/21 @ 13:08 by Juanpablo Herrera MD) Social History: 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 He lives with his who is the durable power marketing communications coordinator for healthcare. Smoking packs per day: 1 Smoking cigarettes per day: 20.0 Years smoked: 40 Smoking pack-years: 40.00 Smoking status: Never smoker Tobacco type: cigarettes Second hand tobacco smoke exposure: No Smoking end date: 02/14/19 Alcohol intake: never Alcohol use details: rare, holidays Substance use: never Substance use type: does not use Additional living arrangements comments: SPOUSE Gender identity (if verbalized by the patient): Male Sexual Orientation (if Verbalized by the Patient): Straight or Heterosexual Spiritual care concerns: No Meds Home Medications and Allergies Home Medications Medication Instructions Recorded Confirmed Type No Home Medications 07/07/21 07/07/21 History Allergies Allergy/AdvReac Type Severity Reaction Status Date / Time No Known Allergies Allergy Verified 07/03/21 13:22 Vital Signs Vital Signs - 24 hr 07/08/21 06:00 Pulse Rate 100 Respiratory Rate 14 Blood Pressure 125/50 L Pulse Oximetry 93 Exam Narrative: mucous membranes moist neck wo jvd chest coarse bs throughout heart rr abd soft with hypoactive bs extr no cce neuro right facial droop Assessment and Plan Assessment and plan (1) Palliative care by specialist: Code(s): Z51.5 - Encounter for palliative care Status: Acute Assessment and Plan: Qualifies for inpatient hospice due to need for continuous IV hydromorphone Continue palliative regimen as ordered d/s son and spouse at bedside (2) Aspiration pneumonia: Qualifiers: Aspiration pneumonia type: unspecified Laterality: unspecified laterality Lung location: unspecified part of lung Qualified Code(s): J69.0 - Pneumonitis due to inhalation of food and vomit Code(s)
[2021-07-08 15:20] VITALS: BP 128/70; PULSE 110; RESP 28; TEMP 37.3; O2SAT 84
[2021-07-08] MEDS: HYDROmorphone HCL INJ (*CRX) 1 MG/ML SYR IV PUSH (15:21)
[2021-07-08 15:22] VITALS: PULSE 107; PULSE 120; RESP 28
[2021-07-08] MEDS: HYDROmorphone HCL/PF (*CRX) 50 MG in SODIUM CHLORIDE 0.9% IV 95 ML IV CONT (15:22)
--- NOTE | 2021-07-08 16:50 | PC.NURSE ---
Pt son called underwriter to room, observed pt with no vitals signs of life, Verified by storage battery charger Nicole.
--- NOTE | 2021-07-09 13:54 | P.DN_ITS ---
Discharge Summary Date and Time Date of : 07/08/21 Time of : 16:50 Provider Pronounced By: Vangie Garrett RN Probable Cause of Probable Cause of : STROKE Summary Hospital Course: PATIENT WAS ADMITTED TO INPATIENT HOSPICE SERVICE DUE TO STROKE WITH RIGHT HEMIPARESIS, DYSPHAGIA, SEIZURES, ASPIRATION PNEUMONIA, AND UNCONTROLLED DYSPNEA. LOW DOSE HYPDROMORPHONE 0.25MG/HR WITH 1MG Q 2 HR PRN WAS INITIATED ALONG WITH IV KEPPRA AND PRN LORAZEPAM. SYMPTOMS REMAINED CONTROLLED. MR. MARIA PEACEFULLY. Additional Data Confirmation of as documented by pronouncing clinician: Pupillary Reflex, Palpable Pulses, Response to Stimuli, Heart Tones and Breath Sounds Name of Provider Notified: Dr Herrera Time Provider Notified: 16:55 Provider Requests Autopsy: No Family Requests Autopsy: No Technician [facility] Notified: Yes Date [facility] Notified of : 07/08/21 Time [facility] Notified of : 17:15
== END 2021-07-08 16:50 | disposition expired | DRG 951 ==
PROVIDERS: Admitting Provider Internal Medicine; PCP Family Medicine; Visit Provider Physician Assistant
DX: Z51.5 Encounter for palliative care (principal); I63.9 Cerebral infarction, unspecified; J69.0 Pneumonitis due to inhalation of food and vomit; G81.91 Hemiplegia, unspecified affecting right dominant side; G40.89 Other seizures; N17.9 Acute kidney failure, unspecified; R13.10 Dysphagia, unspecified; J44.9 Chronic obstructive pulmonary disease, unspecified; I25.10 Atherosclerotic heart disease of native coronary artery without angina pectoris; E03.9 Hypothyroidism, unspecified; K21.9 Gastro-esophageal reflux disease without esophagitis; E78.5 Hyperlipidemia, unspecified; M47.896 Other spondylosis, lumbar region; G62.9 Polyneuropathy, unspecified; N40.1 Benign prostatic hyperplasia with lower urinary tract symptoms; Z86.73 Personal history of transient ischemic attack (TIA), and cerebral infarction without residual deficits; Z85.46 Personal history of malignant neoplasm of prostate; Z98.42 Cataract extraction status, left eye; Z98.41 Cataract extraction status, right eye; Z87.891 Personal history of nicotine dependence
CPT/HCPCS: A9270; J1170